=== PATIENT | female | born 1965 | race Caucasian/White ===

== ENCOUNTER 2016-07-09 09:38 | Inpatient (IN) | payer MEDICAID, OTHER ==
[~2016-07-09] VITALS: Ht 162.6 cm; Wt 98.0 kg
[~2016-07-09 09:38] MED LIST: OLAN7.5T2 PO
[2016-07-09 10:58] LABS: BASOPHILS % (AUTO) 0.5 % (0.0-2.0); EOSINOPHILS % (AUTO) 1.4 % (1.0-6.0); HEMATOCRIT 41.1 % (36-46); HEMOGLOBIN 13.4 g/dL (12.0-16.0); LYMPHOCYTES # (AUTO) 3.3 K/uL (1.0-4.8); LYMPHOCYTES % (AUTO) 35.7 % (22.0-44.0); MEAN CORPUSCULAR HEMOGLOBIN 28.6 pg (26.0-34.0); MEAN CORPUSCULAR HGB CONC 32.6 G/dL (31.0-37.0); MEAN CORPUSCULAR VOLUME 88 fL (80-100); MONOCYTES # (AUTO) 0.4 K/uL (0.1-1.0); MONOCYTES % (AUTO) 4.4 % (2.0-9.0); NEUTROPHILS # (AUTO) 5.3 K/uL (1.8-7.7); PLATELET COUNT (AUTO) 314 K/uL (150-450); RED BLOOD CELL COUNT(AUTO) 4.69 MIL/uL (4.00-5.20); RED CELL DISTRIBUTION WIDTH 14.3 % (11.5-14.5); WHITE BLOOD COUNT (AUTO) 9.2 K/uL (4.5-11.0)
[2016-07-09] MEDS ORDERED: HALOPERIDOL 5 MG TABLET PO PRN (11:15)
[2016-07-09 12:19] LABS: ANION GAP 12 mmol/L (8-16); CALCIUM, TOTAL 8.9 mg/dL (8.8-10.5); CARBON DIOXIDE 27 mmol/L (22-29); CHLORIDE 102 mmol/L (98-107); CREATININE 0.84 mg/dL (0.60-1.30); GLOMERULAR FILTR. RATE CALC > 60 mL/min (>60); POTASSIUM 3.2 mmol/L (3.5-5.1); SODIUM SERUM 141 mmol/L (136-145); UREA NITROGEN, BLOOD 15 mg/dL (7-18)
[2016-07-09 12:27] LABS: ALANINE AMINOTRANSFERASE 25 U/L (12-78); ALBUMIN 3.6 g/dL (3.4-5.0); ASPARTATE AMINOTRANSFERASE 19 U/L (15-37); BILIRUBIN,TOTAL 0.4 mg/dL (0.1-1.0); TOTAL PROTEIN, SERUM 7.6 g/dL (6.4-8.2)
[2016-07-09] MEDS ORDERED: POTASSIUM CHLORIDE 20 MEQ ER TABLET PO ONE (15:00)
[2016-07-09 16:08] VITALS: BP 122/86
[2016-07-10 03:14] VITALS: BP 126/76
[2016-07-10] MEDS: LORazepam 2 MG TABLET PO PRN (03:17)
[2016-07-10 08:25] VITALS: BP 108/68
[2016-07-10 08:30] LABS: BASOPHILS # (AUTO) 0.05 K/uL (0.00-0.20); BASOPHILS % (AUTO) 0.6 % (0.0-2.0); EOSINOPHILS # (AUTO) 0.24 K/uL (0.00-0.70); EOSINOPHILS % (AUTO) 2.59 % (1.0-6.0); HEMATOCRIT 35.2 % (36-46); HEMOGLOBIN 11.8 g/dL (12.0-16.0); LYMPHOCYTES # (AUTO) 4.8 K/uL (1.0-4.8); LYMPHOCYTES % (AUTO) 52.1 % (22.0-44.0); MEAN CORPUSCULAR HEMOGLOBIN 29.2 pg (26.0-34.0); MEAN CORPUSCULAR HGB CONC 33.6 G/dL (31.0-37.0); MEAN CORPUSCULAR VOLUME 87 fL (80-100); MONOCYTES # (AUTO) 0.6 K/uL (0.1-1.0); MONOCYTES % (AUTO) 6.5 % (2.0-9.0); NEUTROPHILS # (AUTO) 3.5 K/uL (1.8-7.7); NEUTROPHILS % (AUTO) 38.3 % (40.0-70.0); PLATELET COUNT (AUTO) 292 K/uL (150-450); RED BLOOD CELL COUNT(AUTO) 4.05 MIL/uL (4.00-5.20); RED CELL DISTRIBUTION WIDTH 14.6 % (11.5-14.5); WHITE BLOOD COUNT (AUTO) 9.1 K/uL (4.5-11.0)
[2016-07-10 16:11] VITALS: BP 140/96
[2016-07-10 19:03] VITALS: BP 114/72
[2016-07-10] MEDS: OLANZapine 7.5 MG TABLET PO SCH (21:04)
[2016-07-11 04:50] VITALS: BP 132/82
[2016-07-11] MEDS: LORazepam 2 MG TABLET PO PRN (05:18)
[2016-07-11 09:10] VITALS: BP 129/65
[2016-07-11 16:22] VITALS: BP 133/73
[2016-07-11] MEDS: OLANZapine 7.5 MG TABLET PO SCH (20:17)
[2016-07-11] MEDS: ZOLPIDEM TARTRATE 10 MG TABLET PO PRN (22:11)
[2016-07-12 00:30] VITALS: BP 123/75
[2016-07-12] MEDS: FERROUS SULFATE 325 MG EC TABLET PO SCH ×2 (06:27→16:32)
[2016-07-12 08:56] VITALS: BP 127/70
[2016-07-12 09:33] LABS: HEMATOCRIT 37.7 % (36-46); HEMOGLOBIN 12.3 g/dL (12.0-16.0); MEAN CORPUSCULAR HEMOGLOBIN 28.5 pg (26.0-34.0); MEAN CORPUSCULAR HGB CONC 32.6 G/dL (31.0-37.0); MEAN CORPUSCULAR VOLUME 87 fL (80-100); PLATELET COUNT (AUTO) 326 K/uL (150-450); RED BLOOD CELL COUNT(AUTO) 4.31 MIL/uL (4.00-5.20); RED CELL DISTRIBUTION WIDTH 14.4 % (11.5-14.5); WHITE BLOOD COUNT (AUTO) 8.7 K/uL (4.5-11.0)
[2016-07-12 10:01] LABS: ALANINE AMINOTRANSFERASE 27 U/L (12-78); ALBUMIN 3.4 g/dL (3.4-5.0); ANION GAP 7 mmol/L (8-16); ASPARTATE AMINOTRANSFERASE 19 U/L (15-37); BILIRUBIN,TOTAL 0.2 mg/dL (0.1-1.0); CALCIUM, TOTAL 9.3 mg/dL (8.8-10.5); CARBON DIOXIDE 31 mmol/L (22-29); CHLORIDE 102 mmol/L (98-107); CHOL/HDL RATIO 6.5 (3.9-5.7); CREATININE 0.86 mg/dL (0.60-1.30); GLOMERULAR FILTR. RATE CALC > 60 mL/min (>60); PHOSPHORUS 4.5 mg/dL (2.5-4.9); POTASSIUM 3.6 mmol/L (3.5-5.1); SODIUM SERUM 140 mmol/L (136-145); THYROID STIMULATING HORMONE 2.64 uIU/mL (0.36-3.74); TOTAL PROTEIN, SERUM 7.2 g/dL (6.4-8.2); UREA NITROGEN, BLOOD 19 mg/dL (7-18)
[2016-07-12 11:27] LABS: BAND NEUTROPHILS % (MANUAL) 2 % (1-5); LYMPHOCYTES % (MANUAL) 24 % (22-44); RBC MORPHOLOGY COMMENT NORMAL RBC MORPH; TOTAL CELLS COUNTED 100
[2016-07-12 16:00] VITALS: BP 121/77
[2016-07-12] MEDS ORDERED: BENZOCAINE/MENTHOL LOZENGE MM PRN (19:45)
[2016-07-12] MEDS ORDERED: MAG HYDROX/AL HYDROX/SIMETH ES 30 ML SUSPENSION UDCUP PO PRN (19:45)
[2016-07-12] MEDS ORDERED: LOPERAMIDE HCL 2 MG CAPSULE PO PRN (19:45)
[2016-07-12] MEDS ORDERED: ALBUTEROL SULFATE HFA 90 MCG/PUFF 8 GM INHALER IH PRN (19:45)
[2016-07-12] MEDS ORDERED: PETROLATUM,WHITE 71 GM JELLY TP PRN (19:45)
[2016-07-12] MEDS ORDERED: MAGNESIUM HYDROXIDE SUSPENSION 30 ML UDCUP PO PRN (19:45)
[2016-07-12] MEDS ORDERED: ONDANSETRON HCL 4 MG TABLET PO PRN (19:45)
[2016-07-12] MEDS ORDERED: ACETAMINOPHEN 325 MG TABLET PO PRN (19:45)
[2016-07-12] MEDS ORDERED: BACITRACIN 28.4 GM OINTMENT TP PRN (19:45)
[2016-07-12] MEDS ORDERED: IBUPROFEN 600 MG TABLET PO PRN (19:45)
[2016-07-12] MEDS ORDERED: CloNIDine HCL 0.1 MG TABLET PO PRN (19:45)
[2016-07-12] MEDS: OLANZapine 7.5 MG TABLET PO SCH (20:18)
[2016-07-13] MEDS: FERROUS SULFATE 325 MG EC TABLET PO SCH ×2 (06:30→18:04)
[2016-07-13 06:41] VITALS: BP 110/73
[2016-07-13] MEDS: OMEPRAZOLE 20 MG CAPSULE PO SCH (08:46)
[2016-07-13] MEDS: DOCUSATE SODIUM 100 MG CAPSULE PO SCH (08:46)
[2016-07-13] MEDS: CHOLECALCIFEROL (VIT D3) 1,000 UNITS TABLET PO SCH (08:46)
[2016-07-13 08:55] VITALS: BP 124/81
[2016-07-13 16:00] VITALS: BP 112/64
[2016-07-13] MEDS: OLANZapine 7.5 MG TABLET PO SCH (20:27)
[2016-07-14 05:06] VITALS: BP 129/81
[2016-07-14] MEDS: FERROUS SULFATE 325 MG EC TABLET PO SCH ×2 (06:13→17:15)
[2016-07-14 08:35] VITALS: BP 108/61
[2016-07-14] MEDS: DOCUSATE SODIUM 100 MG CAPSULE PO SCH (08:57)
[2016-07-14] MEDS: CHOLECALCIFEROL (VIT D3) 1,000 UNITS TABLET PO SCH (08:57)
[2016-07-14] MEDS: OMEPRAZOLE 20 MG CAPSULE PO SCH (08:57)
[2016-07-14 16:08] VITALS: BP 115/73
[2016-07-14] MEDS: OLANZapine 7.5 MG TABLET PO SCH (20:13)
[2016-07-15] MEDS: FERROUS SULFATE 325 MG EC TABLET PO SCH ×2 (06:45→16:28)
[2016-07-15 08:23] VITALS: BP 114/68
[2016-07-15] MEDS: DOCUSATE SODIUM 100 MG CAPSULE PO SCH (08:46)
[2016-07-15] MEDS: OMEPRAZOLE 20 MG CAPSULE PO SCH (08:46)
[2016-07-15] MEDS: CHOLECALCIFEROL (VIT D3) 1,000 UNITS TABLET PO SCH (08:46)
[2016-07-15 16:07] VITALS: BP 115/65
[2016-07-15] MEDS: OLANZapine 7.5 MG TABLET PO SCH (20:44)
[2016-07-16 05:04] VITALS: BP 117/63
[2016-07-16] MEDS: FERROUS SULFATE 325 MG EC TABLET PO SCH ×2 (06:36→17:30)
[2016-07-16 08:21] VITALS: BP 106/64
[2016-07-16] MEDS: DOCUSATE SODIUM 100 MG CAPSULE PO SCH (08:45)
[2016-07-16] MEDS: CHOLECALCIFEROL (VIT D3) 1,000 UNITS TABLET PO SCH (08:45)
[2016-07-16] MEDS: OMEPRAZOLE 20 MG CAPSULE PO SCH (08:45)
[2016-07-16 16:30] VITALS: BP 104/56
[2016-07-16] MEDS: OLANZapine 7.5 MG TABLET PO SCH (20:05)
[2016-07-17 00:35] VITALS: BP 126/68
[2016-07-17] MEDS: FERROUS SULFATE 325 MG EC TABLET PO SCH ×2 (06:37→16:55)
[2016-07-17 08:30] VITALS: BP 111/65
[2016-07-17] MEDS: OMEPRAZOLE 20 MG CAPSULE PO SCH (09:28)
[2016-07-17] MEDS: DOCUSATE SODIUM 100 MG CAPSULE PO SCH (09:28)
[2016-07-17] MEDS: CHOLECALCIFEROL (VIT D3) 1,000 UNITS TABLET PO SCH (09:28)
[2016-07-17 16:31] VITALS: BP 133/81
[2016-07-17] MEDS: OLANZapine 7.5 MG TABLET PO SCH (20:20)
[2016-07-18 01:16] VITALS: BP 127/82
[2016-07-18] MEDS: FERROUS SULFATE 325 MG EC TABLET PO SCH ×2 (06:27→17:16)
[2016-07-18 08:27] VITALS: BP 108/63
[2016-07-18] MEDS: CHOLECALCIFEROL (VIT D3) 1,000 UNITS TABLET PO SCH (09:03)
[2016-07-18] MEDS: DOCUSATE SODIUM 100 MG CAPSULE PO SCH (09:03)
[2016-07-18] MEDS: OMEPRAZOLE 20 MG CAPSULE PO SCH (09:03)
[2016-07-18 16:10] VITALS: BP 112/63
[2016-07-18] MEDS: OLANZapine 7.5 MG TABLET PO SCH (20:07)
[2016-07-19 00:34] VITALS: BP 114/72
[2016-07-19] MEDS: FERROUS SULFATE 325 MG EC TABLET PO SCH ×2 (06:08→16:41)
[2016-07-19] MEDS: DOCUSATE SODIUM 100 MG CAPSULE PO SCH (09:17)
[2016-07-19] MEDS: OMEPRAZOLE 20 MG CAPSULE PO SCH (09:17)
[2016-07-19] MEDS: CHOLECALCIFEROL (VIT D3) 1,000 UNITS TABLET PO SCH (09:17)
[2016-07-19 09:22] VITALS: BP 109/60
[2016-07-19 16:19] VITALS: BP 107/74
[2016-07-19] MEDS: ZOLPIDEM TARTRATE 10 MG TABLET PO PRN (20:43)
[2016-07-19] MEDS: OLANZapine 7.5 MG TABLET PO SCH (20:43)
[2016-07-20] MEDS: FERROUS SULFATE 325 MG EC TABLET PO SCH ×2 (06:41→18:06)
[2016-07-20 08:29] VITALS: BP 111/61
[2016-07-20] MEDS: OMEPRAZOLE 20 MG CAPSULE PO SCH (09:00)
[2016-07-20] MEDS: CHOLECALCIFEROL (VIT D3) 1,000 UNITS TABLET PO SCH (09:00)
[2016-07-20] MEDS: DOCUSATE SODIUM 100 MG CAPSULE PO SCH (09:00)
[2016-07-20 16:17] VITALS: BP 114/74
[2016-07-20] MEDS: OLANZapine 7.5 MG TABLET PO SCH (21:05)
[2016-07-21] MEDS: FERROUS SULFATE 325 MG EC TABLET PO SCH ×2 (06:37→16:59)
[2016-07-21 08:53] VITALS: BP 111/50
[2016-07-21] MEDS: CHOLECALCIFEROL (VIT D3) 1,000 UNITS TABLET PO SCH (09:16)
[2016-07-21] MEDS: DOCUSATE SODIUM 100 MG CAPSULE PO SCH (09:16)
[2016-07-21] MEDS: OMEPRAZOLE 20 MG CAPSULE PO SCH (09:16)
[2016-07-21 16:17] VITALS: BP 107/67
[2016-07-21] MEDS: OLANZapine 7.5 MG TABLET PO SCH (20:15)
[2016-07-22 00:08] VITALS: BP 113/71
[2016-07-22] MEDS: FERROUS SULFATE 325 MG EC TABLET PO SCH (06:36)
[2016-07-22 08:25] VITALS: BP 105/64
[2016-07-22] MEDS: CHOLECALCIFEROL (VIT D3) 1,000 UNITS TABLET PO SCH (09:13)
[2016-07-22] MEDS: DOCUSATE SODIUM 100 MG CAPSULE PO SCH (09:13)
[2016-07-22] MEDS: OMEPRAZOLE 20 MG CAPSULE PO SCH (09:13)
[2016-07-22] MEDS ORDERED: OLAN7.5T2 PO (11:09)
[2016-07-22] MEDS ORDERED: FERR-89 PO (11:09)
[2016-07-22] MEDS ORDERED: DSS100 PO (11:10)
[2016-07-22] MEDS ORDERED: OMEP20 PO (11:10)
== END 2016-07-22 14:05 | disposition home or self-care (01) | DRG 750 ==
LOC: EMS 09:40 → B2S 12:28
PROVIDERS: ADMIT Psychiatry & Neurology Psychiatry; ATTEND Psychiatry & Neurology Psychiatry
DX: F25.9 Schizoaffective disorder, unspecified (principal); E55.9 Vitamin D deficiency, unspecified; F22 Delusional disorders; D64.9 Anemia, unspecified; G47.00 Insomnia, unspecified; K59.00 Constipation, unspecified
CPT/HCPCS: 82306; 83735; 84100; 84132; 84443; 85007; 99285; G0480

== ENCOUNTER 2016-12-06 08:02 | Inpatient (IN) | payer MEDICAID, OTHER ==
[~2016-12-06] VITALS: Ht 177.8 cm; Wt 96.9 kg
[2016-12-06 08:55] LABS: BASOPHILS % (AUTO) 0.8 % (0.0-2.0); EOSINOPHILS % (AUTO) 1.3 % (1.0-6.0); HEMOGLOBIN 13.8 g/dL (12.0-16.0); LYMPHOCYTES % (AUTO) 35.6 % (22.0-44.0); MEAN CORPUSCULAR HEMOGLOBIN 29.2 pg (26.0-34.0); MEAN CORPUSCULAR HGB CONC 33.7 G/dL (31.0-37.0); MEAN CORPUSCULAR VOLUME 87 fL (80-100); MONOCYTES # (AUTO) 0.5 K/uL (0.1-1.0); MONOCYTES % (AUTO) 5.8 % (2.0-9.0); NEUTROPHILS # (AUTO) 4.8 K/uL (1.8-7.7); NEUTROPHILS % (AUTO) 56.5 % (40.0-70.0); PLATELET COUNT (AUTO) 300 K/uL (150-450); RED BLOOD CELL COUNT(AUTO) 4.74 MIL/uL (4.00-5.20); RED CELL DISTRIBUTION WIDTH 13.9 % (11.5-14.5); WHITE BLOOD COUNT (AUTO) 8.4 K/uL (4.5-11.0)
[2016-12-06 09:10] LABS: ALANINE AMINOTRANSFERASE 37 U/L (12-78); ALBUMIN 3.6 g/dL (3.4-5.0); ANION GAP 12 mmol/L (8-16); ASPARTATE AMINOTRANSFERASE 26 U/L (15-37); BILIRUBIN,TOTAL 0.7 mg/dL (0.1-1.0); CALCIUM, TOTAL 9.4 mg/dL (8.8-10.5); CARBON DIOXIDE 25 mmol/L (22-29); CHLORIDE 103 mmol/L (98-107); CREATININE 0.77 mg/dL (0.60-1.30); GLOMERULAR FILTR. RATE CALC > 60 mL/min (>60); SODIUM SERUM 140 mmol/L (136-145); TOTAL PROTEIN, SERUM 7.7 g/dL (6.4-8.2); UREA NITROGEN, BLOOD 13 mg/dL (7-18)
[2016-12-06] MEDS ORDERED: LORazepam 2 MG TABLET PO PRN (12:15)
[2016-12-06] MEDS ORDERED: ZOLPIDEM TARTRATE 10 MG TABLET PO PRN (12:15)
[2016-12-06 12:48] LABS: CHOL/HDL RATIO 7.8 (3.9-5.7)
[2016-12-06] MEDS: OLANZapine 5 MG RAPDIS TABLET PO PRN (14:59)
[2016-12-06] MEDS ORDERED: POTASSIUM CHLORIDE 20 MEQ ER TABLET PO ONE ×2 (16:00→21:00)
[2016-12-06 16:11] VITALS: BP 136/81
[2016-12-06] MEDS: OLANZapine 10 MG TABLET PO SCH (20:45)
[2016-12-07] MEDS: DOCUSATE SODIUM 100 MG CAPSULE PO SCH (08:16)
[2016-12-07] MEDS: OMEPRAZOLE 20 MG CAPSULE PO SCH (08:16)
[2016-12-07] MEDS: OLANZapine 5 MG RAPDIS TABLET PO PRN (08:17)
[2016-12-07] MEDS: CHOLECALCIFEROL (VIT D3) 1,000 UNITS TABLET PO SCH (08:17)
[2016-12-07 08:38] VITALS: BP 114/67
[2016-12-07] MEDS ORDERED: POTASSIUM CHLORIDE 20 MEQ ER TABLET PO ONE ×2 (14:30→21:00)
[2016-12-07 17:45] VITALS: BP 133/76
[2016-12-07] MEDS: OLANZapine 10 MG TABLET PO SCH (20:31)
[2016-12-08] MEDS: CHOLECALCIFEROL (VIT D3) 1,000 UNITS TABLET PO SCH (11:01)
[2016-12-08] MEDS: OMEPRAZOLE 20 MG CAPSULE PO SCH (11:01)
[2016-12-08] MEDS: DOCUSATE SODIUM 100 MG CAPSULE PO SCH (11:01)
[2016-12-08 14:18] VITALS: BP 136/72
[2016-12-08] MEDS: OLANZapine 10 MG TABLET PO SCH (20:52)
[2016-12-08 22:55] VITALS: BP 124/81
[2016-12-09 09:41] VITALS: BP 116/71
[2016-12-09] MEDS: DOCUSATE SODIUM 100 MG CAPSULE PO SCH (10:49)
[2016-12-09] MEDS: CHOLECALCIFEROL (VIT D3) 1,000 UNITS TABLET PO SCH (10:49)
[2016-12-09] MEDS: OMEPRAZOLE 20 MG CAPSULE PO SCH (10:49)
[2016-12-09 19:25] VITALS: BP 134/81
[2016-12-09] MEDS: OLANZapine 10 MG TABLET PO SCH (20:56)
[2016-12-10 02:23] VITALS: BP 123/76
[2016-12-10] MEDS: OMEPRAZOLE 20 MG CAPSULE PO SCH (10:42)
[2016-12-10] MEDS: DOCUSATE SODIUM 100 MG CAPSULE PO SCH (10:42)
[2016-12-10] MEDS: CHOLECALCIFEROL (VIT D3) 1,000 UNITS TABLET PO SCH (10:42)
[2016-12-10 15:00] VITALS: BP 120/82
[2016-12-10 17:18] VITALS: BP 137/91
[2016-12-10] MEDS: OLANZapine 10 MG TABLET PO SCH (20:05)
[2016-12-11 09:10] VITALS: BP 125/75
[2016-12-11] MEDS: CHOLECALCIFEROL (VIT D3) 1,000 UNITS TABLET PO SCH (10:36)
[2016-12-11] MEDS: DOCUSATE SODIUM 100 MG CAPSULE PO SCH (10:36)
[2016-12-11] MEDS: OMEPRAZOLE 20 MG CAPSULE PO SCH (10:36)
[2016-12-11 16:58] VITALS: BP 136/60
[2016-12-11] MEDS: OLANZapine 10 MG TABLET PO SCH (20:24)
[2016-12-12 08:05] VITALS: BP 134/99
[2016-12-12] MEDS: OMEPRAZOLE 20 MG CAPSULE PO SCH (11:11)
[2016-12-12] MEDS: DOCUSATE SODIUM 100 MG CAPSULE PO SCH (11:11)
[2016-12-12] MEDS: CHOLECALCIFEROL (VIT D3) 1,000 UNITS TABLET PO SCH (11:11)
[2016-12-12 16:28] VITALS: BP 122/87
[2016-12-12] MEDS: OLANZapine 10 MG TABLET PO SCH (20:58)
[2016-12-13 01:10] VITALS: BP 125/63
[2016-12-13 08:05] VITALS: BP 123/73
[2016-12-13] MEDS: OMEPRAZOLE 20 MG CAPSULE PO SCH (08:33)
[2016-12-13] MEDS: CHOLECALCIFEROL (VIT D3) 1,000 UNITS TABLET PO SCH (08:33)
[2016-12-13] MEDS: DOCUSATE SODIUM 100 MG CAPSULE PO SCH (08:33)
[2016-12-13 19:47] VITALS: BP 137/88
[2016-12-13] MEDS: OLANZapine 10 MG TABLET PO SCH (20:24)
[2016-12-14 08:05] VITALS: BP 108/57
[2016-12-14] MEDS: CHOLECALCIFEROL (VIT D3) 1,000 UNITS TABLET PO SCH (08:42)
[2016-12-14] MEDS: OMEPRAZOLE 20 MG CAPSULE PO SCH (08:42)
[2016-12-14] MEDS: DOCUSATE SODIUM 100 MG CAPSULE PO SCH (08:42)
[2016-12-14 16:52] VITALS: BP 121/65
[2016-12-14] MEDS: OLANZapine 10 MG TABLET PO SCH (20:25)
[2016-12-15] MEDS: CHOLECALCIFEROL (VIT D3) 1,000 UNITS TABLET PO SCH (08:55)
[2016-12-15] MEDS: OMEPRAZOLE 20 MG CAPSULE PO SCH (08:55)
[2016-12-15] MEDS: DOCUSATE SODIUM 100 MG CAPSULE PO SCH (08:55)
[2016-12-15 09:22] VITALS: BP 136/75
[2016-12-15] MEDS: OLANZapine 5 MG TABLET PO SCH (12:46)
[2016-12-15 19:19] VITALS: BP 126/73
[2016-12-15] MEDS: OLANZapine 10 MG TABLET PO SCH (20:49)
[2016-12-16 08:30] VITALS: BP 102/81
[2016-12-16] MEDS: DOCUSATE SODIUM 100 MG CAPSULE PO SCH (09:53)
[2016-12-16] MEDS: OLANZapine 5 MG TABLET PO SCH (09:53)
[2016-12-16] MEDS: OMEPRAZOLE 20 MG CAPSULE PO SCH (09:53)
[2016-12-16] MEDS: CHOLECALCIFEROL (VIT D3) 1,000 UNITS TABLET PO SCH (09:53)
[2016-12-16] MEDS: OLANZapine 10 MG TABLET PO SCH (20:32)
[2016-12-16 20:56] VITALS: BP 125/78
[2016-12-17] MEDS: DOCUSATE SODIUM 100 MG CAPSULE PO SCH (10:41)
[2016-12-17] MEDS: OMEPRAZOLE 20 MG CAPSULE PO SCH (10:41)
[2016-12-17] MEDS: CHOLECALCIFEROL (VIT D3) 1,000 UNITS TABLET PO SCH (10:41)
[2016-12-17] MEDS: OLANZapine 5 MG TABLET PO SCH (10:41)
[2016-12-17 13:14] VITALS: BP 105/72
[2016-12-17 16:30] VITALS: BP 110/87
[2016-12-17] MEDS: OLANZapine 10 MG TABLET PO SCH (20:24)
[2016-12-18 08:30] VITALS: BP 106/57
[2016-12-18] MEDS: DOCUSATE SODIUM 100 MG CAPSULE PO SCH (09:15)
[2016-12-18] MEDS: CHOLECALCIFEROL (VIT D3) 1,000 UNITS TABLET PO SCH (09:16)
[2016-12-18] MEDS: OMEPRAZOLE 20 MG CAPSULE PO SCH (09:16)
[2016-12-18] MEDS: OLANZapine 5 MG TABLET PO SCH (09:23)
[2016-12-18 17:10] VITALS: BP 123/60
[2016-12-18] MEDS: OLANZapine 10 MG TABLET PO SCH (21:03)
[2016-12-19] MEDS: DOCUSATE SODIUM 100 MG CAPSULE PO SCH (08:25)
[2016-12-19] MEDS: OMEPRAZOLE 20 MG CAPSULE PO SCH (08:25)
[2016-12-19] MEDS: OLANZapine 5 MG TABLET PO SCH (08:25)
[2016-12-19] MEDS: CHOLECALCIFEROL (VIT D3) 1,000 UNITS TABLET PO SCH (08:25)
[2016-12-19 09:20] VITALS: BP 114/59
[2016-12-19] MEDS: OLANZapine 10 MG TABLET PO SCH (20:24)
[2016-12-19 22:40] VITALS: BP 121/67
[2016-12-20] MEDS: DOCUSATE SODIUM 100 MG CAPSULE PO SCH ×2 (09:00→10:15)
[2016-12-20 10:05] VITALS: BP 100/58
[2016-12-20] MEDS: OMEPRAZOLE 20 MG CAPSULE PO SCH (10:15)
[2016-12-20] MEDS: CHOLECALCIFEROL (VIT D3) 1,000 UNITS TABLET PO SCH (10:15)
[2016-12-20] MEDS: OLANZapine 5 MG TABLET PO SCH (10:15)
[2016-12-20] MEDS: OLANZapine 10 MG TABLET PO SCH (20:24)
[2016-12-20 20:29] VITALS: BP 116/58
[2016-12-21] MEDS: OLANZapine 5 MG TABLET PO SCH (08:43)
[2016-12-21] MEDS: OMEPRAZOLE 20 MG CAPSULE PO SCH (08:43)
[2016-12-21] MEDS: CHOLECALCIFEROL (VIT D3) 1,000 UNITS TABLET PO SCH (08:43)
[2016-12-21] MEDS: DOCUSATE SODIUM 100 MG CAPSULE PO SCH (08:44)
[2016-12-21 13:39] VITALS: BP 103/62
[2016-12-21 18:53] VITALS: BP 114/66
[2016-12-21] MEDS: OLANZapine 10 MG TABLET PO SCH (20:13)
[2016-12-22 08:30] VITALS: BP 111/67
[2016-12-22] MEDS: OMEPRAZOLE 20 MG CAPSULE PO SCH (09:20)
[2016-12-22] MEDS: OLANZapine 5 MG TABLET PO SCH (09:20)
[2016-12-22] MEDS: CHOLECALCIFEROL (VIT D3) 1,000 UNITS TABLET PO SCH (09:21)
[2016-12-22] MEDS: DOCUSATE SODIUM 100 MG CAPSULE PO SCH (09:21)
[2016-12-22 17:01] VITALS: BP 123/70
[2016-12-22] MEDS: OLANZapine 10 MG TABLET PO SCH (20:18)
[2016-12-22] MEDS: DIVALPROEX SODIUM 500 MG DR TABLET PO SCH (20:19)
[2016-12-23 08:03] VITALS: BP 124/82
[2016-12-23] MEDS: DIVALPROEX SODIUM 500 MG DR TABLET PO SCH ×2 (09:14→20:25)
[2016-12-23] MEDS: CHOLECALCIFEROL (VIT D3) 1,000 UNITS TABLET PO SCH (09:14)
[2016-12-23] MEDS: OLANZapine 10 MG TABLET PO SCH ×2 (09:15→20:26)
[2016-12-23] MEDS: OMEPRAZOLE 20 MG CAPSULE PO SCH (09:15)
[2016-12-23] MEDS: DOCUSATE SODIUM 100 MG CAPSULE PO SCH (09:15)
[2016-12-23 17:18] VITALS: BP 125/72
[2016-12-24 08:00] VITALS: BP 107/69
[2016-12-24] MEDS: DIVALPROEX SODIUM 500 MG DR TABLET PO SCH (08:27)
[2016-12-24] MEDS: DOCUSATE SODIUM 100 MG CAPSULE PO SCH (08:27)
[2016-12-24] MEDS: CHOLECALCIFEROL (VIT D3) 1,000 UNITS TABLET PO SCH (08:28)
[2016-12-24] MEDS: OMEPRAZOLE 20 MG CAPSULE PO SCH (08:28)
[2016-12-24] MEDS: OLANZapine 10 MG TABLET PO SCH (08:28)
[2016-12-24] MEDS ORDERED: VITAD1000 PO (10:54)
[2016-12-24] MEDS ORDERED: OMEP20 PO (10:54)
[2016-12-24] MEDS ORDERED: DIVA500T35 PO (10:54)
[2016-12-24] MEDS ORDERED: DSS100 PO (10:54)
[2016-12-24] MEDS ORDERED: OLAN10TA3 PO ×2 (10:54)
== END 2016-12-24 14:10 | disposition home or self-care (01) | DRG 750 ==
LOC: EEVIPCON 08:05 → EMS 08:05 → AHU 13:36 → 3EI 12-07 16:47
DX: F25.1 Schizoaffective disorder, depressive type (principal); Z59.0 Homelessness; K21.9 Gastro-esophageal reflux disease without esophagitis; K59.00 Constipation, unspecified; Z91.5 Personal history of self-harm
CPT/HCPCS: 82306; 84132; 99285; G0480

== ENCOUNTER 2019-04-03 10:44 | Emergency (ER) | payer MEDICAID, OTHER ==
[~2019-04-03] VITALS: Ht 172.7 cm; Wt 84.1 kg
[~2019-04-03 10:44] MED LIST changes: +CHOL100018 PO; +DIVA-78 PO; +DSS100 PO; +OLAN10TA3 PO; -OLAN7.5T2 PO; +OMEP20 PO
[2019-04-03] MEDS ORDERED: HALOPERIDOL LACTATE 5 MG/ML VIAL IM ONE (12:00)
[2019-04-03] MEDS ORDERED: LORazepam 2 MG/ML VIAL IM ONE (12:00)
[2019-04-03] MEDS ORDERED: DiphenhydrAMINE HCL 50 MG/ML VIAL IM ONE (12:00)
[2019-04-03 12:26] LABS: BASOPHILS % (AUTO) 0.8 % (0.0-2.0); EOSINOPHILS % (AUTO) 1.4 % (1.0-6.0); HEMATOCRIT 23.9 % (36-46); HEMOGLOBIN 7.4 g/dL (12.0-16.0); LYMPHOCYTES # (AUTO) 2.1 K/uL (1.0-4.8); LYMPHOCYTES % (AUTO) 27.2 % (22.0-44.0); MEAN CORPUSCULAR HGB CONC 31.1 G/dL (31.0-37.0); MEAN CORPUSCULAR VOLUME 67 fL (80-100); MONOCYTES # (AUTO) 0.7 K/uL (0.1-1.0); MONOCYTES % (AUTO) 8.7 % (2.0-9.0); NEUTROPHILS # (AUTO) 4.8 K/uL (1.8-7.7); NEUTROPHILS % (AUTO) 61.9 % (40.0-70.0); PLATELET COUNT (AUTO) 646 K/uL (150-450); RED BLOOD CELL COUNT(AUTO) 3.54 MIL/uL (4.00-5.20); RED CELL DISTRIBUTION WIDTH 20.3 % (11.5-14.5)
[2019-04-03 13:02] LABS: ANION GAP 9 mmol/L (8-16); CALCIUM, TOTAL 8.9 mg/dL (8.8-10.5); CARBON DIOXIDE 27 mmol/L (22-29); CHLORIDE 103 mmol/L (98-107); CREATININE 0.84 mg/dL (0.60-1.30); GLOMERULAR FILTR. RATE CALC > 60 mL/min (>60); GLUCOSE,RANDOM 96 mg/dL (70-110); POTASSIUM 3.8 mmol/L (3.5-5.1); SODIUM SERUM 139 mmol/L (136-145); UREA NITROGEN, BLOOD 33 mg/dL (7-18)
[2019-04-03 13:15] LABS: ALANINE AMINOTRANSFERASE 30 U/L (12-78); ALBUMIN 3.5 g/dL (3.4-5.0); ALKALINE PHOSPHATASE 69 U/L (46-116); ASPARTATE AMINOTRANSFERASE 22 U/L (15-37); BILIRUBIN,TOTAL 0.2 mg/dL (0.1-1.0); TOTAL PROTEIN, SERUM 8.2 g/dL (6.4-8.2)
[2019-04-03 16:03] LABS: PLATELET MORPHOLOGY COMMENT LARGE PLTS PRESENT
[2019-04-03 18:21] VITALS: BP 120/62
== END 2019-04-03 19:42 | disposition home or self-care (01) ==
LOC: EMS 10:51
DX: F20.9 Schizophrenia, unspecified (principal); R45.1 Restlessness and agitation; Z79.899 Other long term (current) drug therapy
CPT/HCPCS: 36415; 80053; 85025; 96372; 99285; G0480; J1200; J1630; J2060

== ENCOUNTER 2020-10-11 11:50 | Inpatient (IN) | payer OTHER ==
[~2020-10-11] VITALS: Ht 175.3 cm; Wt 68.2 kg
[~2020-10-11 11:50] MED LIST changes: +DIVA-112 PO; -DIVA-78 PO; -OLAN10TA3 PO; +OLAN10TA74 PO
[2020-10-11] MEDS ORDERED: LORazepam 2 MG/ML VIAL IM ONE (12:30)
[2020-10-11] MEDS ORDERED: HALOPERIDOL LACTATE 5 MG/ML VIAL IM ONE (12:30)
[2020-10-11] MEDS ORDERED: DiphenhydrAMINE HCL 50 MG/ML VIAL IM ONE (12:30)
[2020-10-11] MEDS ORDERED: LORazepam 2 MG TABLET PO PRN (14:00)
[2020-10-11] MEDS ORDERED: ZOLPIDEM TARTRATE 10 MG TABLET PO PRN (14:00)
[2020-10-11 15:09] LABS: COVID AG,FIA SOURCE NASOPHARYNGEAL
[2020-10-11 15:54] LABS: BASOPHILS % (AUTO) 0.5 % (0.0-2.0); EOSINOPHILS % (AUTO) 3.3 % (1.0-6.0); HEMATOCRIT 23.7 % (36-46); LYMPHOCYTES # (AUTO) 1.7 K/uL (1.0-4.8); LYMPHOCYTES % (AUTO) 34.7 % (22.0-44.0); MEAN CORPUSCULAR HEMOGLOBIN 17.2 pg (26.0-34.0); MEAN CORPUSCULAR HGB CONC 28.7 G/dL (31.0-37.0); MEAN CORPUSCULAR VOLUME 60 fL (80-100); MONOCYTES # (AUTO) 0.6 K/uL (0.1-1.0); MONOCYTES % (AUTO) 11.5 % (2.0-9.0); NEUTROPHILS # (AUTO) 2.4 K/uL (1.8-7.7); PLATELET COUNT (AUTO) 458 K/uL (150-450); RED BLOOD CELL COUNT(AUTO) 3.98 MIL/uL (4.00-5.20); RED CELL DISTRIBUTION WIDTH 20.9 % (11.5-14.5)
[2020-10-11 15:59] LABS: ANION GAP 7 mmol/L (8-16); CALCIUM, TOTAL 9.2 mg/dL (8.8-10.5); CARBON DIOXIDE 29 mmol/L (22-29); CHLORIDE 105 mmol/L (98-107); GLOMERULAR FILTR. RATE CALC > 60 mL/min (>60); GLUCOSE,RANDOM 84 mg/dL (70-110); POTASSIUM 3.8 mmol/L (3.5-5.1); SODIUM SERUM 141 mmol/L (136-145); UREA NITROGEN, BLOOD 19 mg/dL (7-18)
[2020-10-11 16:03] LABS: HEMOGLOBIN 6.8 g/dL (12.0-16.0)
[2020-10-11 16:04] LABS: ALANINE AMINOTRANSFERASE 16 U/L (12-78); ALBUMIN 3.5 g/dL (3.4-5.0); ALKALINE PHOSPHATASE 70 U/L (46-116); ASPARTATE AMINOTRANSFERASE 15 U/L (15-37); BILIRUBIN,TOTAL 0.2 mg/dL (0.1-1.0); TOTAL PROTEIN, SERUM 7.9 g/dL (6.4-8.2)
[2020-10-11 16:05] LABS: VALPROIC ACID < 3 mcg/mL (50-100)
[2020-10-11 17:56] LABS: HEMATOCRIT 24.4 % (36-46); HEMOGLOBIN 7.1 g/dL (12.0-16.0)
[2020-10-11 22:45] VITALS: BP 117/43
[2020-10-11] MEDS: OLANZapine 10 MG TABLET PO SCH (23:00)
[2020-10-11] MEDS: DIVALPROEX SODIUM 500 MG DR TABLET PO SCH (23:00)
[2020-10-12] MEDS ORDERED: LORazepam 1 MG TABLET PO PRN (00:18)
[2020-10-12] MEDS: HALOPERIDOL 5 MG TABLET PO PRN (00:49)
[2020-10-12] MEDS ORDERED: HALOPERIDOL LACTATE 5 MG/ML VIAL IM ONE (01:15)
[2020-10-12 04:00] VITALS: BP 98/68
[2020-10-12 06:49] LABS: BASOPHILS % (AUTO) 0.4 % (0.0-2.0); EOSINOPHILS % (AUTO) 2.9 % (1.0-6.0); HEMATOCRIT 24.5 % (36-46); LYMPHOCYTES # (AUTO) 1.4 K/uL (1.0-4.8); MEAN CORPUSCULAR HEMOGLOBIN 17.2 pg (26.0-34.0); MEAN CORPUSCULAR HGB CONC 28.7 G/dL (31.0-37.0); MEAN CORPUSCULAR VOLUME 60 fL (80-100); MONOCYTES # (AUTO) 0.5 K/uL (0.1-1.0); MONOCYTES % (AUTO) 7.1 % (2.0-9.0); NEUTROPHILS # (AUTO) 4.8 K/uL (1.8-7.7); NEUTROPHILS % (AUTO) 69.6 % (40.0-70.0); PLATELET COUNT (AUTO) 535 K/uL (150-450); RED BLOOD CELL COUNT(AUTO) 4.09 MIL/uL (4.00-5.20); RED CELL DISTRIBUTION WIDTH 20.6 % (11.5-14.5)
[2020-10-12 07:38] VITALS: BP 102/68
[2020-10-12] MEDS ORDERED: FERROUS GLUCONATE 324 MG TABLET PO SCH (08:00)
[2020-10-12 08:30] LABS: ANION GAP 6 mmol/L (8-16); CARBON DIOXIDE 26 mmol/L (22-29); CHLORIDE 106 mmol/L (98-107); CHOL/HDL RATIO 3.2 (3.9-5.7); CHOLESTEROL 146 mg/dL (131-200); CREATININE 0.69 mg/dL (0.60-1.30); FREE T4 (FREE THYROXINE) 1.02 ng/dL (0.76-1.46); GLOMERULAR FILTR. RATE CALC > 60 mL/min (>60); GLUCOSE,RANDOM 91 mg/dL (70-110); HDL CHOLESTEROL 45 mg/dL (40-60); LDL CHOL (CALC.) 86 mg/dL (0-130); POTASSIUM 3.8 mmol/L (3.5-5.1); SODIUM SERUM 138 mmol/L (136-145); THYROID STIMULATING HORMONE 2.54 uIU/mL (0.36-3.74); TRIGLYCERIDES 75 mg/dL (15-150); UREA NITROGEN, BLOOD 27 mg/dL (7-18)
[2020-10-12] MEDS: OLANZapine 10 MG TABLET PO SCH ×2 (10:34→22:05)
[2020-10-12] MEDS: VITAMIN B COMP/VIT C/FOLIC ACID CAPSULE PO SCH ×2 (10:34→22:04)
[2020-10-12 11:12] VITALS: BP 110/72
[2020-10-12 11:36] LABS: FERRITIN 1 ng/mL (8-252)
[2020-10-12] MEDS: FERROUS SULFATE 325 MG EC TABLET PO SCH ×2 (12:00→17:30)
[2020-10-12 15:05] VITALS: BP 118/66
[2020-10-12 19:27] VITALS: BP 108/64
[2020-10-12] MEDS: PANTOPRAZOLE SODIUM 40 MG/VIAL IVP SCH (22:05)
[2020-10-12] MEDS: DOCUSATE SODIUM 100 MG CAPSULE PO SCH (22:05)
[2020-10-12] MEDS: DIVALPROEX SODIUM 500 MG DR TABLET PO SCH (22:05)
[2020-10-13] VITALS (15 sets, daily range): BP systolic 96–140; BP diastolic 50–79
[2020-10-13 07:17] LABS: BASOPHILS % (AUTO) 1.2 % (0.0-2.0); EOSINOPHILS % (AUTO) 4.2 % (1.0-6.0); HEMATOCRIT 22.4 % (36-46); LYMPHOCYTES # (AUTO) 1.6 K/uL (1.0-4.8); LYMPHOCYTES % (AUTO) 29.4 % (22.0-44.0); MEAN CORPUSCULAR HEMOGLOBIN 17.5 pg (26.0-34.0); MEAN CORPUSCULAR HGB CONC 29.3 G/dL (31.0-37.0); MEAN CORPUSCULAR VOLUME 60 fL (80-100); MONOCYTES # (AUTO) 0.5 K/uL (0.1-1.0); MONOCYTES % (AUTO) 9.4 % (2.0-9.0); NEUTROPHILS % (AUTO) 55.8 % (40.0-70.0); PLATELET COUNT (AUTO) 452 K/uL (150-450); RED BLOOD CELL COUNT(AUTO) 3.76 MIL/uL (4.00-5.20); RED CELL DISTRIBUTION WIDTH 20.6 % (11.5-14.5)
[2020-10-13 07:43] LABS: HEMOGLOBIN 6.6 g/dL (12.0-16.0)
[2020-10-13 07:56] LABS: ALANINE AMINOTRANSFERASE 18 U/L (12-78); ALBUMIN 3.1 g/dL (3.4-5.0); ALKALINE PHOSPHATASE 65 U/L (46-116); ANION GAP 8 mmol/L (8-16); BILIRUBIN,TOTAL 0.2 mg/dL (0.1-1.0); CALCIUM, TOTAL 9.1 mg/dL (8.8-10.5); CARBON DIOXIDE 28 mmol/L (22-29); CHLORIDE 106 mmol/L (98-107); CREATININE 0.65 mg/dL (0.60-1.30); GLOMERULAR FILTR. RATE CALC > 60 mL/min (>60); GLUCOSE,RANDOM 74 mg/dL (70-110); POTASSIUM 3.9 mmol/L (3.5-5.1); SODIUM SERUM 142 mmol/L (136-145); TOTAL PROTEIN, SERUM 7.3 g/dL (6.4-8.2); UREA NITROGEN, BLOOD 18 mg/dL (7-18)
[2020-10-13 08:10] LABS: ASPARTATE AMINOTRANSFERASE 17 U/L (15-37)
[2020-10-13] MEDS: VITAMIN B COMP/VIT C/FOLIC ACID CAPSULE PO SCH ×2 (08:16→20:56)
[2020-10-13] MEDS: OLANZapine 10 MG TABLET PO SCH ×2 (08:16→20:53)
[2020-10-13] MEDS: DOCUSATE SODIUM 100 MG CAPSULE PO SCH ×2 (08:17→20:53)
[2020-10-13] MEDS: PANTOPRAZOLE SODIUM 40 MG/VIAL IVP SCH ×2 (08:17→20:52)
[2020-10-13] MEDS ORDERED: SODIUM CHLORIDE 0.9% 500 ML IV ONE ×2 (08:31→23:38)
[2020-10-13] MEDS: LORazepam 2 MG TABLET PO PRN (12:20)
[2020-10-13] MEDS: IRON SUCROSE COMPLEX 100 MG in SODIUM CHLORIDE 0.9% 100 ML IV SCH (14:42)
[2020-10-13 14:59] LABS: APPEARANCE,URINE CLEAR (CLEAR); BILIRUBIN,URINE NEGATIVE (NEGATIVE); GLUCOSE, URINE (UA) NEGATIVE (NEGATIVE); KETONES,URINE NEGATIVE (NEGATIVE); LEUKOCYTE ESTERASE ,URINE TRACE (NEGATIVE); NITRATE,URINE NEGATIVE (NEGATIVE); OCCULT BLOOD,URINE NEGATIVE (NEGATIVE); PROTEIN,URINE NEGATIVE (NEGATIVE); UROBILINOGEN,URINE 0.2 mg/dL (<=1.0)
[2020-10-13 15:16] LABS: AMPHET/METH SCREEN,URINE NEGATIVE (NEGATIVE); BARBITURATE SCREEN, URINE NEGATIVE (NEGATIVE); BENZODIAZEPINES SCREEN,URINE NEGATIVE (NEGATIVE); CANNABINOID SCREEN,URINE NEGATIVE (NEGATIVE); COCAINE SCREEN,URINE NEGATIVE (NEGATIVE); METHADONE SCREEN, URINE NEGATIVE (NEGATIVE); OPIATE SCREEN,URINE NEGATIVE (NEGATIVE); PHENCYCLIDINE SCREEN,URINE NEGATIVE (NEGATIVE)
[2020-10-13 15:18] LABS: BACTERIA,URINE Rare /HPF (None Seen); RBC,URINE 0-2 /HPF (0-2); SQUAMOUS EPITHELIAL CELL,UR Few /LPF (None Seen)
[2020-10-13 15:20] LABS: HEMATOCRIT 27.1 % (36-46); HEMOGLOBIN 7.8 g/dL (12.0-16.0)
[2020-10-13] MEDS: DIVALPROEX SODIUM 500 MG DR TABLET PO SCH (20:53)
[2020-10-14 04:30] VITALS: BP 107/78
[2020-10-14 04:50] LABS: BASOPHILS % (AUTO) 0.4 % (0.0-2.0); EOSINOPHILS % (AUTO) 1.5 % (1.0-6.0); HEMATOCRIT 26.6 % (36-46); HEMOGLOBIN 7.9 g/dL (12.0-16.0); LYMPHOCYTES # (AUTO) 1.7 K/uL (1.0-4.8); LYMPHOCYTES % (AUTO) 24.7 % (22.0-44.0); MEAN CORPUSCULAR HEMOGLOBIN 18.2 pg (26.0-34.0); MEAN CORPUSCULAR HGB CONC 29.7 G/dL (31.0-37.0); MEAN CORPUSCULAR VOLUME 61 fL (80-100); MONOCYTES # (AUTO) 0.7 K/uL (0.1-1.0); MONOCYTES % (AUTO) 9.9 % (2.0-9.0); NEUTROPHILS # (AUTO) 4.3 K/uL (1.8-7.7); NEUTROPHILS % (AUTO) 63.5 % (40.0-70.0); PLATELET COUNT (AUTO) 448 K/uL (150-450); RED BLOOD CELL COUNT(AUTO) 4.34 MIL/uL (4.00-5.20); RED CELL DISTRIBUTION WIDTH 21.8 % (11.5-14.5)
[2020-10-14 05:08] LABS: ANION GAP 9 mmol/L (8-16); CARBON DIOXIDE 26 mmol/L (22-29); CHLORIDE 106 mmol/L (98-107); CREATININE 0.62 mg/dL (0.60-1.30); GLOMERULAR FILTR. RATE CALC > 60 mL/min (>60); GLUCOSE,RANDOM 112 mg/dL (70-110); POTASSIUM 3.3 mmol/L (3.5-5.1); SODIUM SERUM 141 mmol/L (136-145); UREA NITROGEN, BLOOD 10 mg/dL (7-18)
[2020-10-14 07:33] VITALS: BP 100/60
[2020-10-14] MEDS ORDERED: POTASSIUM CHLORIDE 20 MEQ ER TABLET PO ONE (07:45)
[2020-10-14] MEDS: VITAMIN B COMP/VIT C/FOLIC ACID CAPSULE PO SCH ×2 (08:07→20:21)
[2020-10-14] MEDS: OLANZapine 10 MG TABLET PO SCH ×2 (08:07→20:21)
[2020-10-14] MEDS: LORazepam 2 MG TABLET PO PRN ×2 (08:09→13:48)
[2020-10-14] MEDS: PANTOPRAZOLE SODIUM 40 MG/VIAL IVP SCH ×2 (08:16→20:22)
[2020-10-14] MEDS: DOCUSATE SODIUM 100 MG CAPSULE PO SCH ×2 (08:17→20:21)
[2020-10-14] MEDS: IRON SUCROSE COMPLEX 100 MG in SODIUM CHLORIDE 0.9% 100 ML IV SCH (13:47)
[2020-10-14 16:31] VITALS: BP 115/65
[2020-10-14] MEDS: DIVALPROEX SODIUM 500 MG DR TABLET PO SCH (20:21)
[2020-10-14 20:35] VITALS: BP 97/56
[2020-10-15 04:17] VITALS: BP 109/60
[2020-10-15 07:20] LABS: ALANINE AMINOTRANSFERASE 24 U/L (12-78); ALKALINE PHOSPHATASE 71 U/L (46-116); ANION GAP 10 mmol/L (8-16); ASPARTATE AMINOTRANSFERASE 17 U/L (15-37); BILIRUBIN,TOTAL 0.2 mg/dL (0.1-1.0); CALCIUM, TOTAL 8.9 mg/dL (8.8-10.5); CARBON DIOXIDE 24 mmol/L (22-29); CHLORIDE 107 mmol/L (98-107); CREATININE 0.71 mg/dL (0.60-1.30); GLOMERULAR FILTR. RATE CALC > 60 mL/min (>60); GLUCOSE,RANDOM 123 mg/dL (70-110); POTASSIUM 3.6 mmol/L (3.5-5.1); SODIUM SERUM 141 mmol/L (136-145); TOTAL PROTEIN, SERUM 7.3 g/dL (6.4-8.2); UREA NITROGEN, BLOOD 10 mg/dL (7-18)
[2020-10-15 07:26] VITALS: BP 105/57
[2020-10-15 07:41] LABS: BASOPHILS % (AUTO) 0.8 % (0.0-2.0); EOSINOPHILS % (AUTO) 6.1 % (1.0-6.0); HEMATOCRIT 26.3 % (36-46); HEMOGLOBIN 7.6 g/dL (12.0-16.0); LYMPHOCYTES % (AUTO) 30.3 % (22.0-44.0); MEAN CORPUSCULAR HEMOGLOBIN 18.1 pg (26.0-34.0); MEAN CORPUSCULAR HGB CONC 28.9 G/dL (31.0-37.0); MEAN CORPUSCULAR VOLUME 62 fL (80-100); MONOCYTES # (AUTO) 0.6 K/uL (0.1-1.0); MONOCYTES % (AUTO) 9.9 % (2.0-9.0); NEUTROPHILS # (AUTO) 3.4 K/uL (1.8-7.7); NEUTROPHILS % (AUTO) 52.9 % (40.0-70.0); PLATELET COUNT (AUTO) 451 K/uL (150-450); RED BLOOD CELL COUNT(AUTO) 4.21 MIL/uL (4.00-5.20); RED CELL DISTRIBUTION WIDTH 22.2 % (11.5-14.5)
[2020-10-15] MEDS: VITAMIN B COMP/VIT C/FOLIC ACID CAPSULE PO SCH ×2 (09:17→20:36)
[2020-10-15] MEDS: DOCUSATE SODIUM 100 MG CAPSULE PO SCH ×2 (09:17→20:36)
[2020-10-15] MEDS: OLANZapine 10 MG TABLET PO SCH ×2 (09:18→20:36)
[2020-10-15] MEDS: PANTOPRAZOLE SODIUM 40 MG/VIAL IVP SCH ×2 (09:20→20:47)
[2020-10-15] MEDS: IRON SUCROSE COMPLEX 100 MG in SODIUM CHLORIDE 0.9% 100 ML IV SCH ×2 (14:00→20:46)
[2020-10-15 15:31] VITALS: BP 113/69
[2020-10-15] MEDS: LORazepam 2 MG TABLET PO PRN ×2 (15:36→23:29)
[2020-10-15 19:22] VITALS: BP 122/60
[2020-10-15] MEDS: DIVALPROEX SODIUM 500 MG DR TABLET PO SCH (20:36)
[2020-10-15 23:04] VITALS: BP 116/71
[2020-10-16 03:45] VITALS: BP 119/75
[2020-10-16] MEDS: LORazepam 2 MG TABLET PO PRN (05:32)
[2020-10-16 07:02] LABS: EOSINOPHILS % (AUTO) 5.5 % (1.0-6.0); LYMPHOCYTES # (AUTO) 2.5 K/uL (1.0-4.8); LYMPHOCYTES % (AUTO) 33.9 % (22.0-44.0); MEAN CORPUSCULAR HEMOGLOBIN 18.5 pg (26.0-34.0); MEAN CORPUSCULAR HGB CONC 29.6 G/dL (31.0-37.0); MEAN CORPUSCULAR VOLUME 62 fL (80-100); MONOCYTES # (AUTO) 0.8 K/uL (0.1-1.0); MONOCYTES % (AUTO) 10.6 % (2.0-9.0); NEUTROPHILS # (AUTO) 3.6 K/uL (1.8-7.7); PLATELET COUNT (AUTO) 480 K/uL (150-450); RED BLOOD CELL COUNT(AUTO) 4.34 MIL/uL (4.00-5.20); RED CELL DISTRIBUTION WIDTH 22.2 % (11.5-14.5)
[2020-10-16 07:11] LABS: ANION GAP 6 mmol/L (8-16); CALCIUM, TOTAL 9.2 mg/dL (8.8-10.5); CARBON DIOXIDE 29 mmol/L (22-29); CHLORIDE 105 mmol/L (98-107); CREATININE 0.71 mg/dL (0.60-1.30); GLOMERULAR FILTR. RATE CALC > 60 mL/min (>60); GLUCOSE,RANDOM 91 mg/dL (70-110); POTASSIUM 3.8 mmol/L (3.5-5.1); SODIUM SERUM 140 mmol/L (136-145); UREA NITROGEN, BLOOD 10 mg/dL (7-18)
[2020-10-16] MEDS: OLANZapine 10 MG TABLET PO SCH ×2 (08:12→20:30)
[2020-10-16] MEDS: DOCUSATE SODIUM 100 MG CAPSULE PO SCH ×2 (08:12→20:31)
[2020-10-16] MEDS: PANTOPRAZOLE SODIUM 40 MG/VIAL IVP SCH ×2 (08:12→20:30)
[2020-10-16] MEDS: VITAMIN B COMP/VIT C/FOLIC ACID CAPSULE PO SCH ×2 (08:12→20:31)
[2020-10-16 08:22] VITALS: BP 126/46
[2020-10-16 15:21] VITALS: BP 136/76
[2020-10-16] MEDS: IRON SUCROSE COMPLEX 100 MG in SODIUM CHLORIDE 0.9% 100 ML IV SCH ×2 (20:00→20:30)
[2020-10-16] MEDS: DIVALPROEX SODIUM 500 MG DR TABLET PO SCH (20:30)
[2020-10-16 20:45] VITALS: BP 101/72
[2020-10-17 00:06] VITALS: BP 123/78
[2020-10-17] MEDS: HALOPERIDOL 5 MG TABLET PO PRN (02:15)
[2020-10-17] MEDS: LORazepam 2 MG TABLET PO PRN (02:15)
[2020-10-17 04:27] VITALS: BP 118/77
[2020-10-17 06:26] LABS: BASOPHILS % (AUTO) 0.7 % (0.0-2.0); EOSINOPHILS % (AUTO) 5.3 % (1.0-6.0); HEMATOCRIT 27.6 % (36-46); HEMOGLOBIN 8.2 g/dL (12.0-16.0); LYMPHOCYTES # (AUTO) 2.2 K/uL (1.0-4.8); LYMPHOCYTES % (AUTO) 31.6 % (22.0-44.0); MEAN CORPUSCULAR HEMOGLOBIN 18.7 pg (26.0-34.0); MEAN CORPUSCULAR HGB CONC 29.5 G/dL (31.0-37.0); MEAN CORPUSCULAR VOLUME 63 fL (80-100); MONOCYTES # (AUTO) 0.7 K/uL (0.1-1.0); MONOCYTES % (AUTO) 10.5 % (2.0-9.0); NEUTROPHILS # (AUTO) 3.7 K/uL (1.8-7.7); NEUTROPHILS % (AUTO) 51.9 % (40.0-70.0); PLATELET COUNT (AUTO) 467 K/uL (150-450); RED BLOOD CELL COUNT(AUTO) 4.37 MIL/uL (4.00-5.20); RED CELL DISTRIBUTION WIDTH 22.2 % (11.5-14.5)
[2020-10-17 06:43] LABS: ALANINE AMINOTRANSFERASE 27 U/L (12-78); ALBUMIN 3.3 g/dL (3.4-5.0); ALKALINE PHOSPHATASE 77 U/L (46-116); ANION GAP 7 mmol/L (8-16); ASPARTATE AMINOTRANSFERASE 15 U/L (15-37); BILIRUBIN,TOTAL 0.1 mg/dL (0.1-1.0); CALCIUM, TOTAL 9.5 mg/dL (8.8-10.5); CARBON DIOXIDE 30 mmol/L (22-29); CHLORIDE 103 mmol/L (98-107); CREATININE 0.69 mg/dL (0.60-1.30); GLOMERULAR FILTR. RATE CALC > 60 mL/min (>60); GLUCOSE,RANDOM 94 mg/dL (70-110); POTASSIUM 3.9 mmol/L (3.5-5.1); SODIUM SERUM 140 mmol/L (136-145); TOTAL PROTEIN, SERUM 7.8 g/dL (6.4-8.2); UREA NITROGEN, BLOOD 10 mg/dL (7-18)
[2020-10-17 08:27] VITALS: BP 98/52
[2020-10-17] MEDS: PANTOPRAZOLE SODIUM 40 MG/VIAL IVP SCH (09:00)
[2020-10-17] MEDS: VITAMIN B COMP/VIT C/FOLIC ACID CAPSULE PO SCH (09:56)
[2020-10-17] MEDS: OLANZapine 10 MG TABLET PO SCH (09:56)
[2020-10-17] MEDS: DOCUSATE SODIUM 100 MG CAPSULE PO SCH (09:56)
[2020-10-17 11:28] VITALS: BP 114/76
[2020-10-17 15:23] VITALS: BP 116/74
[2020-10-17 16:50] LABS: COVID AG,FIA SOURCE NASAL SWAB
== END 2020-10-17 18:13 | DRG 663 ==
LOC: EMS 11:57 → 4E 22:15 → 6N 10-12 18:13
PROVIDERS: ADMIT Internal Medicine; ATTEND Internal Medicine
PROC: 30233N1 Transfusion of Nonautologous Red Blood Cells into Peripheral Vein, Percutaneous Approach (ICD-10-PCS; principal; 2020-10-13)
DX: D50.9 Iron deficiency anemia, unspecified (principal); F25.1 Schizoaffective disorder, depressive type; Z20.822 Contact with and (suspected) exposure to COVID-19; E63.9 Nutritional deficiency, unspecified; F31.9 Bipolar disorder, unspecified; K21.9 Gastro-esophageal reflux disease without esophagitis; Z79.899 Other long term (current) drug therapy
CPT/HCPCS: 80048; 80053; 80061; 80164; 81001; 82271; 82728; 83540; 83550; 83615; 83735; 84439; 84443; 85014; 85018; 85025; 85610; 85730; 86850; 86900; 86901; 86923; 99285; C9113; G0378; G0480; J1200; J1630; J1756; J2060; J7040; J7050; P9016

== ENCOUNTER 2020-10-17 12:14 | Inpatient (IN) | payer MEDICAID ==
[~2020-10-17] VITALS: Ht 167.6 cm; Wt 82.1 kg
[2020-10-17 18:30] VITALS: BP 104/60
[2020-10-17] MEDS: DIVALPROEX SODIUM 500 MG DR TABLET PO SCH (20:33)
[2020-10-17] MEDS: OLANZapine 10 MG TABLET PO SCH (20:34)
[2020-10-18 04:27] VITALS: BP 98/54
[2020-10-18 06:51] LABS: EOSINOPHILS % (AUTO) 5.4 % (1.0-6.0); HEMATOCRIT 25.9 % (36-46); HEMOGLOBIN 7.7 g/dL (12.0-16.0); LYMPHOCYTES # (AUTO) 1.7 K/uL (1.0-4.8); LYMPHOCYTES % (AUTO) 26.7 % (22.0-44.0); MEAN CORPUSCULAR HEMOGLOBIN 18.8 pg (26.0-34.0); MEAN CORPUSCULAR HGB CONC 29.7 G/dL (31.0-37.0); MEAN CORPUSCULAR VOLUME 63 fL (80-100); MONOCYTES # (AUTO) 0.6 K/uL (0.1-1.0); MONOCYTES % (AUTO) 9.1 % (2.0-9.0); NEUTROPHILS # (AUTO) 3.6 K/uL (1.8-7.7); NEUTROPHILS % (AUTO) 57.8 % (40.0-70.0); PLATELET COUNT (AUTO) 423 K/uL (150-450); RED BLOOD CELL COUNT(AUTO) 4.08 MIL/uL (4.00-5.20); RED CELL DISTRIBUTION WIDTH 22.8 % (11.5-14.5)
[2020-10-18] MEDS: FERROUS SULFATE 325 MG EC TABLET PO SCH ×3 (06:59→16:24)
[2020-10-18 07:22] LABS: ALANINE AMINOTRANSFERASE 30 U/L (12-78); ALKALINE PHOSPHATASE 74 U/L (46-116); ANION GAP 9 mmol/L (8-16); ASPARTATE AMINOTRANSFERASE 16 U/L (15-37); BILIRUBIN,TOTAL 0.1 mg/dL (0.1-1.0); CARBON DIOXIDE 29 mmol/L (22-29); CHLORIDE 104 mmol/L (98-107); CHOL/HDL RATIO 3.9 (3.9-5.7); CHOLESTEROL 133 mg/dL (131-200); CREATININE 0.68 mg/dL (0.60-1.30); GLOMERULAR FILTR. RATE CALC > 60 mL/min (>60); GLUCOSE,RANDOM 86 mg/dL (70-110); HDL CHOLESTEROL 34 mg/dL (40-60); LDL CHOL (CALC.) 82 mg/dL (0-130); POTASSIUM 4.2 mmol/L (3.5-5.1); SODIUM SERUM 142 mmol/L (136-145); TOTAL PROTEIN, SERUM 7.3 g/dL (6.4-8.2); TRIGLYCERIDES 85 mg/dL (15-150); UREA NITROGEN, BLOOD 18 mg/dL (7-18); VALPROIC ACID 36 mcg/mL (50-100)
[2020-10-18] MEDS: OLANZapine 10 MG TABLET PO SCH ×3 (08:16→20:58)
[2020-10-18] MEDS: VITAMIN B COMP/VIT C/FOLIC ACID CAPSULE PO SCH ×3 (08:16→16:24)
[2020-10-18 10:31] VITALS: BP 98/56
[2020-10-18 16:08] VITALS: BP 100/60
[2020-10-18] MEDS: HALOPERIDOL 5 MG TABLET PO PRN (20:59)
[2020-10-18] MEDS: DIVALPROEX SODIUM 500 MG DR TABLET PO SCH (20:59)
[2020-10-19 04:32] VITALS: BP 104/64
[2020-10-19] MEDS: FERROUS SULFATE 325 MG EC TABLET PO SCH ×3 (07:07→17:06)
[2020-10-19 08:00] VITALS: BP 106/59
[2020-10-19] MEDS: VITAMIN B COMP/VIT C/FOLIC ACID CAPSULE PO SCH ×2 (08:40→17:06)
[2020-10-19] MEDS: OLANZapine 10 MG TABLET PO SCH ×2 (08:40→20:53)
[2020-10-19] MEDS: ASCORBIC ACID 500 MG TABLET PO SCH ×3 (08:41→17:06)
[2020-10-19 16:00] VITALS: BP 134/84
[2020-10-19] MEDS ORDERED: PERMETHRIN 1% 60 ML LOTION TP ONE (17:45)
[2020-10-19] MEDS: DIVALPROEX SODIUM 500 MG DR TABLET PO SCH (20:54)
[2020-10-19] MEDS: HALOPERIDOL 5 MG TABLET PO PRN (21:34)
[2020-10-20] MEDS: FERROUS SULFATE 325 MG EC TABLET PO SCH ×4 (06:50→17:30)
[2020-10-20] MEDS: OLANZapine 10 MG TABLET PO SCH ×3 (09:00→20:09)
[2020-10-20] MEDS: ASCORBIC ACID 500 MG TABLET PO SCH ×4 (09:31→17:00)
[2020-10-20] MEDS: VITAMIN B COMP/VIT C/FOLIC ACID CAPSULE PO SCH ×3 (09:31→17:00)
[2020-10-20 16:51] VITALS: BP 116/69
[2020-10-20] MEDS: DIVALPROEX SODIUM 500 MG DR TABLET PO SCH (20:09)
[2020-10-21] MEDS: FERROUS SULFATE 325 MG EC TABLET PO SCH ×3 (07:00→17:30)
[2020-10-21 08:23] VITALS: BP 119/76
[2020-10-21] MEDS: ASCORBIC ACID 500 MG TABLET PO SCH ×3 (09:00→17:00)
[2020-10-21] MEDS: OLANZapine 10 MG TABLET PO SCH ×2 (09:00→20:51)
[2020-10-21] MEDS: VITAMIN B COMP/VIT C/FOLIC ACID CAPSULE PO SCH ×2 (09:00→17:00)
[2020-10-21 16:00] VITALS: BP 113/54
[2020-10-21] MEDS: DIVALPROEX SODIUM 500 MG DR TABLET PO SCH (20:51)
[2020-10-22] MEDS: FERROUS SULFATE 325 MG EC TABLET PO SCH ×3 (06:38→17:30)
[2020-10-22 07:40] VITALS: BP 126/88
[2020-10-22] MEDS: ASCORBIC ACID 500 MG TABLET PO SCH ×3 (09:00→17:00)
[2020-10-22] MEDS: VITAMIN B COMP/VIT C/FOLIC ACID CAPSULE PO SCH ×2 (09:00→17:00)
[2020-10-22] MEDS: OLANZapine 10 MG TABLET PO SCH ×2 (09:00→21:00)
[2020-10-22 11:26] VITALS: BP 109/65
[2020-10-22 16:11] VITALS: BP 133/83
[2020-10-22] MEDS: DIVALPROEX SODIUM 500 MG DR TABLET PO SCH (21:00)
[2020-10-23 04:47] VITALS: BP 103/72
[2020-10-23] MEDS: FERROUS SULFATE 325 MG EC TABLET PO SCH ×3 (06:50→17:30)
[2020-10-23] MEDS: VITAMIN B COMP/VIT C/FOLIC ACID CAPSULE PO SCH ×2 (09:00→17:00)
[2020-10-23] MEDS: ASCORBIC ACID 500 MG TABLET PO SCH ×3 (09:00→17:00)
[2020-10-23] MEDS: OLANZapine 10 MG TABLET PO SCH ×2 (09:00→21:00)
[2020-10-23 16:25] VITALS: BP 115/56
[2020-10-23] MEDS: DIVALPROEX SODIUM 500 MG DR TABLET PO SCH (21:00)
[2020-10-24] MEDS: FERROUS SULFATE 325 MG EC TABLET PO SCH ×3 (07:17→16:45)
[2020-10-24] MEDS: OLANZapine 10 MG TABLET PO SCH ×2 (09:00→21:00)
[2020-10-24] MEDS: ASCORBIC ACID 500 MG TABLET PO SCH ×3 (09:00→16:45)
[2020-10-24] MEDS: VITAMIN B COMP/VIT C/FOLIC ACID CAPSULE PO SCH ×2 (09:00→16:45)
[2020-10-24 15:51] LABS: COVID AG,FIA SOURCE NASOPHARYNGEAL
[2020-10-24 18:19] VITALS: BP 101/72
[2020-10-24] MEDS: DIVALPROEX SODIUM 500 MG DR TABLET PO SCH (21:00)
[2020-10-25 02:50] VITALS: BP 122/60
[2020-10-25] MEDS: FERROUS SULFATE 325 MG EC TABLET PO SCH ×3 (06:45→17:36)
[2020-10-25] MEDS: VITAMIN B COMP/VIT C/FOLIC ACID CAPSULE PO SCH ×2 (09:00→17:36)
[2020-10-25] MEDS: ASCORBIC ACID 500 MG TABLET PO SCH ×3 (09:00→17:36)
[2020-10-25] MEDS: OLANZapine 10 MG TABLET PO SCH ×2 (09:00→20:34)
[2020-10-25] MEDS ORDERED: DiphenhydrAMINE HCL 50 MG/ML VIAL ONE (14:22)
[2020-10-25] MEDS ORDERED: LORazepam 2 MG/ML VIAL ONE (14:22)
[2020-10-25] MEDS ORDERED: HALOPERIDOL LACTATE 5 MG/ML VIAL ONE (14:22)
[2020-10-25] MEDS ORDERED: LORazepam 2 MG/ML VIAL IM ONE (14:30)
[2020-10-25] MEDS ORDERED: HALOPERIDOL LACTATE 5 MG/ML VIAL IM ONE (14:30)
[2020-10-25] MEDS ORDERED: DiphenhydrAMINE HCL 50 MG/ML VIAL IM ONE (14:30)
[2020-10-25 16:00] VITALS: BP 105/67
[2020-10-25] MEDS: DIVALPROEX SODIUM 500 MG DR TABLET PO SCH (20:34)
[2020-10-26 03:48] VITALS: BP 105/62
[2020-10-26] MEDS: FERROUS SULFATE 325 MG EC TABLET PO SCH ×3 (07:02→16:18)
[2020-10-26 09:01] VITALS: BP 99/60
[2020-10-26] MEDS: OLANZapine 10 MG TABLET PO SCH ×2 (10:11→20:40)
[2020-10-26] MEDS: ASCORBIC ACID 500 MG TABLET PO SCH ×3 (10:12→16:18)
[2020-10-26] MEDS: VITAMIN B COMP/VIT C/FOLIC ACID CAPSULE PO SCH ×2 (10:12→16:18)
[2020-10-26 16:08] VITALS: BP 104/70
[2020-10-26] MEDS: DIVALPROEX SODIUM 500 MG DR TABLET PO SCH (20:39)
[2020-10-27 04:45] VITALS: BP 95/65
[2020-10-27] MEDS: FERROUS SULFATE 325 MG EC TABLET PO SCH ×3 (06:50→19:44)
[2020-10-27 09:00] VITALS: BP 97/58
[2020-10-27] MEDS: VITAMIN B COMP/VIT C/FOLIC ACID CAPSULE PO SCH ×2 (09:00→17:19)
[2020-10-27] MEDS: OLANZapine 10 MG TABLET PO SCH ×2 (09:00→21:22)
[2020-10-27] MEDS: ASCORBIC ACID 500 MG TABLET PO SCH ×3 (09:00→17:19)
[2020-10-27 16:45] VITALS: BP 101/74
[2020-10-27] MEDS: DIVALPROEX SODIUM 500 MG DR TABLET PO SCH (21:21)
[2020-10-28] MEDS: FERROUS SULFATE 325 MG EC TABLET PO SCH ×3 (06:29→17:45)
[2020-10-28 08:57] VITALS: BP 104/60
[2020-10-28] MEDS: VITAMIN B COMP/VIT C/FOLIC ACID CAPSULE PO SCH ×2 (09:00→17:06)
[2020-10-28] MEDS: OLANZapine 10 MG TABLET PO SCH ×2 (09:00→21:31)
[2020-10-28] MEDS: ASCORBIC ACID 500 MG TABLET PO SCH ×3 (09:00→17:06)
[2020-10-28 16:17] VITALS: BP 101/64
[2020-10-28] MEDS: HALOPERIDOL 5 MG TABLET PO PRN (17:06)
[2020-10-28] MEDS: DIVALPROEX SODIUM 500 MG DR TABLET PO SCH (21:31)
[2020-10-29 01:01] VITALS: BP 108/64
[2020-10-29] MEDS: FERROUS SULFATE 325 MG EC TABLET PO SCH ×3 (06:43→17:30)
[2020-10-29 09:24] VITALS: BP 91/58
[2020-10-29] MEDS: OLANZapine 10 MG TABLET PO SCH ×2 (10:11→21:17)
[2020-10-29] MEDS: ASCORBIC ACID 500 MG TABLET PO SCH ×3 (10:12→17:00)
[2020-10-29] MEDS: VITAMIN B COMP/VIT C/FOLIC ACID CAPSULE PO SCH ×3 (10:12→17:00)
[2020-10-29 16:00] VITALS: BP 101/71
[2020-10-29] MEDS: DIVALPROEX SODIUM 500 MG DR TABLET PO SCH (21:17)
[2020-10-30] MEDS: FERROUS SULFATE 325 MG EC TABLET PO SCH ×3 (06:46→16:19)
[2020-10-30] MEDS: OLANZapine 10 MG TABLET PO SCH ×2 (09:08→20:57)
[2020-10-30] MEDS: VITAMIN B COMP/VIT C/FOLIC ACID CAPSULE PO SCH ×2 (09:08→16:19)
[2020-10-30] MEDS: ASCORBIC ACID 500 MG TABLET PO SCH ×3 (09:08→16:19)
[2020-10-30 10:17] VITALS: BP 117/75
[2020-10-30 15:27] LABS: COVID AG,FIA SOURCE NASOPHARYNGEAL
[2020-10-30] MEDS: DIVALPROEX SODIUM 500 MG DR TABLET PO SCH (20:56)
[2020-10-31] MEDS: FERROUS SULFATE 325 MG EC TABLET PO SCH ×3 (06:45→16:14)
[2020-10-31] MEDS: OLANZapine 10 MG TABLET PO SCH ×2 (07:57→20:26)
[2020-10-31] MEDS: VITAMIN B COMP/VIT C/FOLIC ACID CAPSULE PO SCH ×2 (07:57→16:14)
[2020-10-31] MEDS: ASCORBIC ACID 500 MG TABLET PO SCH ×3 (07:57→16:14)
[2020-10-31 08:59] VITALS: BP 105/61
[2020-10-31 16:39] VITALS: BP 100/60
[2020-10-31 20:00] VITALS: BP 127/67
[2020-10-31] MEDS: DIVALPROEX SODIUM 500 MG DR TABLET PO SCH (20:26)
[2020-11-01] MEDS: FERROUS SULFATE 325 MG EC TABLET PO SCH ×3 (06:41→16:43)
[2020-11-01] MEDS: VITAMIN B COMP/VIT C/FOLIC ACID CAPSULE PO SCH ×2 (08:31→16:43)
[2020-11-01] MEDS: ASCORBIC ACID 500 MG TABLET PO SCH ×3 (08:31→16:43)
[2020-11-01] MEDS: OLANZapine 10 MG TABLET PO SCH ×2 (08:31→21:03)
[2020-11-01 08:49] VITALS: BP 98/63
[2020-11-01] MEDS: HALOPERIDOL 5 MG TABLET PO PRN ×2 (16:43→21:03)
[2020-11-01] MEDS: DIVALPROEX SODIUM 500 MG DR TABLET PO SCH (21:02)
[2020-11-02] MEDS: FERROUS SULFATE 325 MG EC TABLET PO SCH ×3 (06:51→16:42)
[2020-11-02 08:20] VITALS: BP 104/51
[2020-11-02] MEDS: ASCORBIC ACID 500 MG TABLET PO SCH ×3 (10:06→16:42)
[2020-11-02] MEDS: VITAMIN B COMP/VIT C/FOLIC ACID CAPSULE PO SCH ×2 (10:06→16:42)
[2020-11-02] MEDS: OLANZapine 10 MG TABLET PO SCH ×2 (10:06→20:50)
[2020-11-02 16:32] VITALS: BP 96/60
[2020-11-02] MEDS: DIVALPROEX SODIUM 500 MG DR TABLET PO SCH (20:50)
[2020-11-03] MEDS: FERROUS SULFATE 325 MG EC TABLET PO SCH ×3 (07:13→16:35)
[2020-11-03 08:00] VITALS: BP 95/60
[2020-11-03] MEDS: OLANZapine 10 MG TABLET PO SCH ×2 (09:23→20:15)
[2020-11-03] MEDS: VITAMIN B COMP/VIT C/FOLIC ACID CAPSULE PO SCH ×2 (09:24→16:35)
[2020-11-03] MEDS: ASCORBIC ACID 500 MG TABLET PO SCH ×3 (09:24→16:35)
[2020-11-03 16:49] VITALS: BP 106/64
[2020-11-03] MEDS: DIVALPROEX SODIUM 500 MG DR TABLET PO SCH (20:15)
[2020-11-04 04:21] VITALS: BP 124/60
[2020-11-04] MEDS: FERROUS SULFATE 325 MG EC TABLET PO SCH ×3 (06:52→16:15)
[2020-11-04 09:23] VITALS: BP 143/92
[2020-11-04] MEDS: ASCORBIC ACID 500 MG TABLET PO SCH ×3 (09:38→16:15)
[2020-11-04] MEDS: OLANZapine 10 MG TABLET PO SCH ×2 (09:38→20:26)
[2020-11-04] MEDS: VITAMIN B COMP/VIT C/FOLIC ACID CAPSULE PO SCH ×2 (09:38→16:15)
[2020-11-04 16:00] VITALS: BP 106/59
[2020-11-04] MEDS: DIVALPROEX SODIUM 500 MG DR TABLET PO SCH (20:26)
[2020-11-05 01:15] VITALS: BP 115/55
[2020-11-05] MEDS: FERROUS SULFATE 325 MG EC TABLET PO SCH ×3 (06:37→16:37)
[2020-11-05] MEDS: ASCORBIC ACID 500 MG TABLET PO SCH ×3 (09:00→16:37)
[2020-11-05] MEDS: VITAMIN B COMP/VIT C/FOLIC ACID CAPSULE PO SCH ×2 (09:00→16:37)
[2020-11-05] MEDS: OLANZapine 10 MG TABLET PO SCH ×2 (09:00→20:12)
[2020-11-05 16:00] VITALS: BP 123/72
[2020-11-05] MEDS: DIVALPROEX SODIUM 500 MG DR TABLET PO SCH (20:12)
[2020-11-06 00:21] VITALS: BP 106/60
[2020-11-06] MEDS: FERROUS SULFATE 325 MG EC TABLET PO SCH ×3 (07:00→17:23)
[2020-11-06] MEDS: ASCORBIC ACID 500 MG TABLET PO SCH ×3 (08:49→17:23)
[2020-11-06] MEDS: VITAMIN B COMP/VIT C/FOLIC ACID CAPSULE PO SCH ×2 (08:49→17:23)
[2020-11-06] MEDS: OLANZapine 10 MG TABLET PO SCH ×2 (08:49→21:19)
[2020-11-06 16:00] VITALS: BP 100/53
[2020-11-06] MEDS: HALOPERIDOL 5 MG TABLET PO PRN (17:23)
[2020-11-06] MEDS: DIVALPROEX SODIUM 500 MG DR TABLET PO SCH (21:18)
[2020-11-06] MEDS: LORazepam 2 MG TABLET PO PRN (21:19)
[2020-11-06 22:41] LABS: COVID AG,FIA SOURCE NASOPHARYNGEAL
[2020-11-07 04:57] VITALS: BP 145/80
[2020-11-07] MEDS: FERROUS SULFATE 325 MG EC TABLET PO SCH ×3 (06:58→17:29)
[2020-11-07] MEDS: ASCORBIC ACID 500 MG TABLET PO SCH ×3 (08:41→17:29)
[2020-11-07] MEDS: OLANZapine 10 MG TABLET PO SCH ×2 (08:41→21:24)
[2020-11-07] MEDS: VITAMIN B COMP/VIT C/FOLIC ACID CAPSULE PO SCH ×2 (08:41→17:29)
[2020-11-07] MEDS ORDERED: TUBERCULIN, PURIFIED PROTEIN DERIVATIVE 5 TU/0.1 ML SYRINGE ID ONE (09:45)
[2020-11-07 16:20] VITALS: BP 124/76
[2020-11-07] MEDS: HALOPERIDOL 5 MG TABLET PO PRN (17:29)
[2020-11-07] MEDS: DIVALPROEX SODIUM 500 MG DR TABLET PO SCH (21:24)
[2020-11-07] MEDS: LORazepam 2 MG TABLET PO PRN (21:24)
[2020-11-08 02:17] VITALS: BP 105/65
[2020-11-08 08:38] VITALS: BP 101/68
[2020-11-08] MEDS: OLANZapine 10 MG TABLET PO SCH ×2 (08:39→21:16)
[2020-11-08] MEDS: VITAMIN B COMP/VIT C/FOLIC ACID CAPSULE PO SCH ×2 (08:40→17:48)
[2020-11-08] MEDS: FERROUS SULFATE 325 MG EC TABLET PO SCH ×3 (08:40→17:48)
[2020-11-08] MEDS: ASCORBIC ACID 500 MG TABLET PO SCH ×3 (08:40→17:48)
[2020-11-08 16:14] VITALS: BP 101/59
[2020-11-08] MEDS: HALOPERIDOL 5 MG TABLET PO PRN (17:48)
[2020-11-08] MEDS: DIVALPROEX SODIUM 500 MG DR TABLET PO SCH (21:16)
[2020-11-08] MEDS: LORazepam 2 MG TABLET PO PRN (21:17)
[2020-11-09 05:52] VITALS: BP 105/70
[2020-11-09] MEDS: FERROUS SULFATE 325 MG EC TABLET PO SCH ×3 (06:37→16:48)
[2020-11-09] MEDS: OLANZapine 10 MG TABLET PO SCH ×2 (08:28→21:02)
[2020-11-09] MEDS: ASCORBIC ACID 500 MG TABLET PO SCH ×3 (08:28→16:48)
[2020-11-09] MEDS: VITAMIN B COMP/VIT C/FOLIC ACID CAPSULE PO SCH ×2 (08:28→16:48)
[2020-11-09 08:54] VITALS: BP 104/53
[2020-11-09 16:27] VITALS: BP 108/72
[2020-11-09] MEDS: HALOPERIDOL 5 MG TABLET PO PRN (16:48)
[2020-11-09] MEDS: DIVALPROEX SODIUM 500 MG DR TABLET PO SCH (21:02)
[2020-11-09] MEDS: LORazepam 2 MG TABLET PO PRN (21:03)
[2020-11-10] MEDS: FERROUS SULFATE 325 MG EC TABLET PO SCH ×3 (07:00→16:21)
[2020-11-10] MEDS: VITAMIN B COMP/VIT C/FOLIC ACID CAPSULE PO SCH ×2 (09:00→16:20)
[2020-11-10] MEDS: ASCORBIC ACID 500 MG TABLET PO SCH ×3 (09:20→16:20)
[2020-11-10] MEDS: OLANZapine 10 MG TABLET PO SCH ×2 (09:20→20:09)
[2020-11-10 10:30] VITALS: BP 94/60
[2020-11-10 16:08] VITALS: BP 112/62
[2020-11-10] MEDS: DIVALPROEX SODIUM 500 MG DR TABLET PO SCH (20:09)
[2020-11-11 03:14] VITALS: BP 105/62
[2020-11-11] MEDS: FERROUS SULFATE 325 MG EC TABLET PO SCH ×3 (06:56→17:30)
[2020-11-11] MEDS: VITAMIN B COMP/VIT C/FOLIC ACID CAPSULE PO SCH ×2 (08:26→17:00)
[2020-11-11] MEDS: ASCORBIC ACID 500 MG TABLET PO SCH ×3 (08:26→17:00)
[2020-11-11] MEDS: OLANZapine 10 MG TABLET PO SCH ×2 (08:27→21:07)
[2020-11-11 09:51] VITALS: BP 96/56
[2020-11-11 16:16] VITALS: BP 115/70
[2020-11-11] MEDS: DIVALPROEX SODIUM 500 MG DR TABLET PO SCH (21:07)
[2020-11-12] MEDS: FERROUS SULFATE 325 MG EC TABLET PO SCH ×3 (06:37→16:20)
[2020-11-12 08:27] VITALS: BP 116/66
[2020-11-12] MEDS: VITAMIN B COMP/VIT C/FOLIC ACID CAPSULE PO SCH ×2 (09:03→16:20)
[2020-11-12] MEDS: OLANZapine 10 MG TABLET PO SCH ×2 (09:03→20:21)
[2020-11-12] MEDS: ASCORBIC ACID 500 MG TABLET PO SCH ×3 (09:04→16:20)
[2020-11-12] MEDS: DIVALPROEX SODIUM 250 MG DR TABLET PO SCH (16:20)
[2020-11-12 16:48] VITALS: BP 102/74
[2020-11-13 03:43] VITALS: BP 109/60
[2020-11-13] MEDS: FERROUS SULFATE 325 MG EC TABLET PO SCH ×3 (06:48→16:04)
[2020-11-13] MEDS: DIVALPROEX SODIUM 250 MG DR TABLET PO SCH ×2 (08:35→16:04)
[2020-11-13] MEDS: ASCORBIC ACID 500 MG TABLET PO SCH ×3 (08:36→16:04)
[2020-11-13] MEDS: OLANZapine 10 MG TABLET PO SCH ×2 (08:36→20:13)
[2020-11-13] MEDS: VITAMIN B COMP/VIT C/FOLIC ACID CAPSULE PO SCH ×2 (08:36→16:04)
[2020-11-13 12:12] VITALS: BP 95/55
[2020-11-13 14:44] LABS: COVID AG,FIA SOURCE NASAL SWAB
[2020-11-13 16:51] VITALS: BP 90/69
[2020-11-14 04:03] VITALS: BP 104/61
[2020-11-14] MEDS: FERROUS SULFATE 325 MG EC TABLET PO SCH ×3 (07:04→16:40)
[2020-11-14] MEDS: DIVALPROEX SODIUM 250 MG DR TABLET PO SCH ×2 (08:35→16:40)
[2020-11-14] MEDS: VITAMIN B COMP/VIT C/FOLIC ACID CAPSULE PO SCH ×2 (08:35→16:40)
[2020-11-14] MEDS: OLANZapine 10 MG TABLET PO SCH ×2 (08:35→20:08)
[2020-11-14] MEDS: ASCORBIC ACID 500 MG TABLET PO SCH ×3 (08:35→16:40)
[2020-11-14] MEDS: HALOPERIDOL 5 MG TABLET PO PRN (16:40)
[2020-11-14 17:35] VITALS: BP 99/67
[2020-11-14] MEDS: LORazepam 2 MG TABLET PO PRN (20:08)
[2020-11-15 05:39] VITALS: BP 99/69
[2020-11-15] MEDS: FERROUS SULFATE 325 MG EC TABLET PO SCH ×3 (06:43→16:05)
[2020-11-15 07:26] LABS: BASOPHILS % (AUTO) 0.8 % (0.0-2.0); EOSINOPHILS % (AUTO) 5.5 % (1.0-6.0); HEMATOCRIT 33.9 % (36-46); HEMOGLOBIN 10.6 g/dL (12.0-16.0); LYMPHOCYTES # (AUTO) 1.9 K/uL (1.0-4.8); LYMPHOCYTES % (AUTO) 34.6 % (22.0-44.0); MEAN CORPUSCULAR HEMOGLOBIN 23.6 pg (26.0-34.0); MEAN CORPUSCULAR HGB CONC 31.3 G/dL (31.0-37.0); MEAN CORPUSCULAR VOLUME 76 fL (80-100); MONOCYTES # (AUTO) 0.7 K/uL (0.1-1.0); MONOCYTES % (AUTO) 13.2 % (2.0-9.0); NEUTROPHILS # (AUTO) 2.5 K/uL (1.8-7.7); NEUTROPHILS % (AUTO) 45.9 % (40.0-70.0); PLATELET COUNT (AUTO) 228 K/uL (150-450); RED CELL DISTRIBUTION WIDTH 34.5 % (11.5-14.5)
[2020-11-15 08:28] VITALS: BP 128/92
[2020-11-15] MEDS: ASCORBIC ACID 500 MG TABLET PO SCH ×3 (08:43→16:05)
[2020-11-15] MEDS: OLANZapine 10 MG TABLET PO SCH ×2 (08:44→20:25)
[2020-11-15] MEDS: VITAMIN B COMP/VIT C/FOLIC ACID CAPSULE PO SCH ×2 (08:44→16:43)
[2020-11-15] MEDS: DIVALPROEX SODIUM 250 MG DR TABLET PO SCH ×2 (08:44→16:05)
[2020-11-15] MEDS: HALOPERIDOL 5 MG TABLET PO PRN (16:05)
[2020-11-15 16:09] VITALS: BP 95/69
[2020-11-15] MEDS: LORazepam 2 MG TABLET PO PRN (19:37)
[2020-11-16] MEDS: FERROUS SULFATE 325 MG EC TABLET PO SCH ×3 (07:04→16:17)
[2020-11-16] MEDS: VITAMIN B COMP/VIT C/FOLIC ACID CAPSULE PO SCH ×2 (08:43→16:17)
[2020-11-16] MEDS: ASCORBIC ACID 500 MG TABLET PO SCH ×3 (08:43→16:17)
[2020-11-16] MEDS: DIVALPROEX SODIUM 250 MG DR TABLET PO SCH ×2 (08:43→16:17)
[2020-11-16] MEDS: OLANZapine 10 MG TABLET PO SCH ×2 (08:50→20:06)
[2020-11-16 08:54] VITALS: BP 98/53
[2020-11-16 16:22] VITALS: BP 96/60
[2020-11-17] MEDS: FERROUS SULFATE 325 MG EC TABLET PO SCH ×3 (06:35→16:30)
[2020-11-17] MEDS: ASCORBIC ACID 500 MG TABLET PO SCH ×3 (08:31→16:06)
[2020-11-17] MEDS: OLANZapine 10 MG TABLET PO SCH ×2 (08:31→20:02)
[2020-11-17] MEDS: DIVALPROEX SODIUM 250 MG DR TABLET PO SCH ×2 (08:32→16:06)
[2020-11-17] MEDS: VITAMIN B COMP/VIT C/FOLIC ACID CAPSULE PO SCH ×2 (08:32→16:06)
[2020-11-17 08:45] VITALS: BP 102/65
[2020-11-17 16:34] VITALS: BP 107/63
[2020-11-18] MEDS: FERROUS SULFATE 325 MG EC TABLET PO SCH ×3 (07:05→16:01)
[2020-11-18 08:02] VITALS: BP 106/58
[2020-11-18] MEDS: OLANZapine 10 MG TABLET PO SCH ×2 (08:12→20:14)
[2020-11-18] MEDS: VITAMIN B COMP/VIT C/FOLIC ACID CAPSULE PO SCH ×2 (08:13→16:01)
[2020-11-18] MEDS: ASCORBIC ACID 500 MG TABLET PO SCH ×3 (08:13→16:01)
[2020-11-18] MEDS: DIVALPROEX SODIUM 250 MG DR TABLET PO SCH ×2 (08:13→16:01)
[2020-11-18 16:01] VITALS: BP 112/62
[2020-11-19 01:30] VITALS: BP 123/73
[2020-11-19] MEDS: FERROUS SULFATE 325 MG EC TABLET PO SCH ×3 (07:01→17:19)
[2020-11-19 08:18] VITALS: BP 100/66
[2020-11-19] MEDS: DIVALPROEX SODIUM 250 MG DR TABLET PO SCH ×2 (08:55→16:02)
[2020-11-19] MEDS: VITAMIN B COMP/VIT C/FOLIC ACID CAPSULE PO SCH ×2 (08:56→16:02)
[2020-11-19] MEDS: OLANZapine 10 MG TABLET PO SCH ×2 (08:56→20:06)
[2020-11-19] MEDS: ASCORBIC ACID 500 MG TABLET PO SCH ×3 (08:57→16:02)
[2020-11-19 16:00] VITALS: BP 117/60
[2020-11-20] MEDS: FERROUS SULFATE 325 MG EC TABLET PO SCH ×3 (06:52→16:59)
[2020-11-20] MEDS: DIVALPROEX SODIUM 250 MG DR TABLET PO SCH ×2 (08:34→16:59)
[2020-11-20] MEDS: VITAMIN B COMP/VIT C/FOLIC ACID CAPSULE PO SCH ×2 (08:34→16:59)
[2020-11-20] MEDS: ASCORBIC ACID 500 MG TABLET PO SCH ×3 (08:34→16:59)
[2020-11-20] MEDS: OLANZapine 10 MG TABLET PO SCH ×2 (08:34→21:34)
[2020-11-20 08:37] VITALS: BP 114/66
[2020-11-20 10:22] LABS: COVID AG,FIA SOURCE NASAL SWAB
[2020-11-20] MEDS: HALOPERIDOL 5 MG TABLET PO PRN (16:59)
[2020-11-20 17:00] VITALS: BP 121/72
[2020-11-20] MEDS: ZOLPIDEM TARTRATE 10 MG TABLET PO PRN (21:34)
[2020-11-21] MEDS: FERROUS SULFATE 325 MG EC TABLET PO SCH ×3 (06:47→17:36)
[2020-11-21 08:46] VITALS: BP 117/74
[2020-11-21] MEDS: VITAMIN B COMP/VIT C/FOLIC ACID CAPSULE PO SCH ×2 (09:20→16:29)
[2020-11-21] MEDS: ASCORBIC ACID 500 MG TABLET PO SCH ×3 (09:20→16:29)
[2020-11-21] MEDS: OLANZapine 10 MG TABLET PO SCH ×2 (09:20→20:28)
[2020-11-21] MEDS: DIVALPROEX SODIUM 250 MG DR TABLET PO SCH ×2 (09:20→16:29)
[2020-11-21 16:27] VITALS: BP 122/92
[2020-11-22] MEDS: FERROUS SULFATE 325 MG EC TABLET PO SCH ×3 (06:33→16:28)
[2020-11-22 08:56] VITALS: BP 110/63
[2020-11-22] MEDS: ASCORBIC ACID 500 MG TABLET PO SCH ×3 (09:23→16:03)
[2020-11-22] MEDS: DIVALPROEX SODIUM 250 MG DR TABLET PO SCH ×2 (09:23→16:03)
[2020-11-22] MEDS: OLANZapine 10 MG TABLET PO SCH ×2 (09:23→20:25)
[2020-11-22] MEDS: VITAMIN B COMP/VIT C/FOLIC ACID CAPSULE PO SCH ×2 (09:24→16:03)
[2020-11-22 16:00] VITALS: BP 110/69
[2020-11-23 04:01] VITALS: BP 140/62
[2020-11-23] MEDS: FERROUS SULFATE 325 MG EC TABLET PO SCH ×3 (06:43→16:30)
[2020-11-23 08:15] VITALS: BP 134/80
[2020-11-23] MEDS: DIVALPROEX SODIUM 250 MG DR TABLET PO SCH ×2 (09:29→16:30)
[2020-11-23] MEDS: OLANZapine 10 MG TABLET PO SCH ×2 (09:29→20:25)
[2020-11-23] MEDS: ASCORBIC ACID 500 MG TABLET PO SCH ×3 (09:29→16:30)
[2020-11-23] MEDS: VITAMIN B COMP/VIT C/FOLIC ACID CAPSULE PO SCH ×2 (09:29→17:53)
[2020-11-23 16:33] VITALS: BP 95/62
[2020-11-24] MEDS: FERROUS SULFATE 325 MG EC TABLET PO SCH ×3 (06:39→17:32)
[2020-11-24 08:00] VITALS: BP 114/74
[2020-11-24] MEDS: DIVALPROEX SODIUM 250 MG DR TABLET PO SCH ×2 (09:13→17:33)
[2020-11-24] MEDS: OLANZapine 10 MG TABLET PO SCH ×2 (09:13→21:14)
[2020-11-24] MEDS: VITAMIN B COMP/VIT C/FOLIC ACID CAPSULE PO SCH ×2 (09:14→17:32)
[2020-11-24] MEDS: ASCORBIC ACID 500 MG TABLET PO SCH ×3 (09:14→17:32)
[2020-11-24 16:00] VITALS: BP 99/60
[2020-11-24] MEDS: HALOPERIDOL 5 MG TABLET PO PRN (17:33)
[2020-11-24] MEDS: ZOLPIDEM TARTRATE 10 MG TABLET PO PRN (21:14)
[2020-11-25] MEDS: FERROUS SULFATE 325 MG EC TABLET PO SCH ×3 (06:49→17:13)
[2020-11-25 08:30] VITALS: BP 97/66
[2020-11-25] MEDS: VITAMIN B COMP/VIT C/FOLIC ACID CAPSULE PO SCH ×2 (09:07→18:03)
[2020-11-25] MEDS: ASCORBIC ACID 500 MG TABLET PO SCH ×3 (09:08→17:13)
[2020-11-25] MEDS: DIVALPROEX SODIUM 250 MG DR TABLET PO SCH ×2 (09:08→17:14)
[2020-11-25] MEDS: OLANZapine 10 MG TABLET PO SCH ×2 (09:08→21:09)
[2020-11-25 16:45] VITALS: BP 98/67
[2020-11-25] MEDS: HALOPERIDOL 5 MG TABLET PO PRN (17:14)
[2020-11-25] MEDS: ZOLPIDEM TARTRATE 10 MG TABLET PO PRN (21:09)
[2020-11-26 00:28] VITALS: BP 129/85
[2020-11-26] MEDS: FERROUS SULFATE 325 MG EC TABLET PO SCH ×3 (06:30→16:24)
[2020-11-26 09:00] VITALS: BP 96/60
[2020-11-26] MEDS: OLANZapine 10 MG TABLET PO SCH ×2 (09:42→20:16)
[2020-11-26] MEDS: DIVALPROEX SODIUM 250 MG DR TABLET PO SCH ×2 (09:42→16:25)
[2020-11-26] MEDS: VITAMIN B COMP/VIT C/FOLIC ACID CAPSULE PO SCH ×2 (09:42→16:25)
[2020-11-26] MEDS: ASCORBIC ACID 500 MG TABLET PO SCH ×3 (09:43→16:25)
[2020-11-26 16:00] VITALS: BP 125/81
[2020-11-26 20:35] VITALS: BP 125/62
[2020-11-27] MEDS: FERROUS SULFATE 325 MG EC TABLET PO SCH ×3 (06:55→16:07)
[2020-11-27 08:50] VITALS: BP 121/76
[2020-11-27] MEDS: OLANZapine 10 MG TABLET PO SCH ×2 (09:44→20:12)
[2020-11-27] MEDS: VITAMIN B COMP/VIT C/FOLIC ACID CAPSULE PO SCH ×2 (09:44→16:07)
[2020-11-27] MEDS: ASCORBIC ACID 500 MG TABLET PO SCH ×3 (09:45→16:07)
[2020-11-27] MEDS: DIVALPROEX SODIUM 250 MG DR TABLET PO SCH ×2 (09:45→16:07)
[2020-11-27 15:25] LABS: COVID AG,FIA SOURCE NASAL SWAB
[2020-11-27 16:20] VITALS: BP 122/73
[2020-11-28] MEDS: FERROUS SULFATE 325 MG EC TABLET PO SCH ×3 (07:02→16:12)
[2020-11-28 08:00] VITALS: BP 97/66
[2020-11-28] MEDS: VITAMIN B COMP/VIT C/FOLIC ACID CAPSULE PO SCH ×2 (10:02→16:13)
[2020-11-28] MEDS: ASCORBIC ACID 500 MG TABLET PO SCH ×3 (10:02→16:13)
[2020-11-28] MEDS: DIVALPROEX SODIUM 250 MG DR TABLET PO SCH ×2 (10:02→16:12)
[2020-11-28] MEDS: OLANZapine 10 MG TABLET PO SCH ×2 (10:02→20:08)
[2020-11-28 16:06] VITALS: BP 117/76
[2020-11-29] MEDS: FERROUS SULFATE 325 MG EC TABLET PO SCH ×3 (06:50→16:08)
[2020-11-29] MEDS: DIVALPROEX SODIUM 250 MG DR TABLET PO SCH ×2 (08:01→16:08)
[2020-11-29] MEDS: ASCORBIC ACID 500 MG TABLET PO SCH ×3 (08:01→16:08)
[2020-11-29] MEDS: VITAMIN B COMP/VIT C/FOLIC ACID CAPSULE PO SCH ×2 (08:01→16:08)
[2020-11-29] MEDS: OLANZapine 10 MG TABLET PO SCH ×2 (08:02→20:15)
[2020-11-29 09:00] VITALS: BP 100/58
[2020-11-29 16:40] VITALS: BP 109/68
[2020-11-30] MEDS: FERROUS SULFATE 325 MG EC TABLET PO SCH ×3 (06:49→16:15)
[2020-11-30 08:24] VITALS: BP 107/52
[2020-11-30] MEDS: DIVALPROEX SODIUM 250 MG DR TABLET PO SCH ×2 (09:48→16:15)
[2020-11-30] MEDS: OLANZapine 10 MG TABLET PO SCH ×2 (09:48→20:21)
[2020-11-30] MEDS: VITAMIN B COMP/VIT C/FOLIC ACID CAPSULE PO SCH ×2 (09:48→16:16)
[2020-11-30] MEDS: ASCORBIC ACID 500 MG TABLET PO SCH ×3 (09:48→16:16)
[2020-11-30 16:22] VITALS: BP 114/65
[2020-12-01 02:06] VITALS: BP 110/66
[2020-12-01] MEDS: FERROUS SULFATE 325 MG EC TABLET PO SCH ×3 (06:30→16:38)
[2020-12-01] MEDS: OLANZapine 10 MG TABLET PO SCH ×2 (09:49→20:37)
[2020-12-01] MEDS: ASCORBIC ACID 500 MG TABLET PO SCH ×3 (09:50→16:38)
[2020-12-01] MEDS: VITAMIN B COMP/VIT C/FOLIC ACID CAPSULE PO SCH ×2 (09:50→16:38)
[2020-12-01] MEDS: DIVALPROEX SODIUM 250 MG DR TABLET PO SCH ×2 (09:52→16:38)
[2020-12-01 10:49] VITALS: BP 131/94
[2020-12-01 16:00] VITALS: BP 108/64
[2020-12-02] MEDS: FERROUS SULFATE 325 MG EC TABLET PO SCH ×3 (06:49→16:17)
[2020-12-02 08:10] VITALS: BP 133/68
[2020-12-02] MEDS: VITAMIN B COMP/VIT C/FOLIC ACID CAPSULE PO SCH ×2 (09:45→16:17)
[2020-12-02] MEDS: DIVALPROEX SODIUM 250 MG DR TABLET PO SCH ×2 (09:45→16:17)
[2020-12-02] MEDS: OLANZapine 10 MG TABLET PO SCH ×2 (09:45→20:21)
[2020-12-02] MEDS: ASCORBIC ACID 500 MG TABLET PO SCH ×3 (09:45→16:17)
[2020-12-02 16:19] VITALS: BP 111/62
[2020-12-03 04:27] VITALS: BP 105/72
[2020-12-03] MEDS: FERROUS SULFATE 325 MG EC TABLET PO SCH ×3 (06:52→16:11)
[2020-12-03] MEDS: VITAMIN B COMP/VIT C/FOLIC ACID CAPSULE PO SCH ×2 (08:23→16:11)
[2020-12-03] MEDS: OLANZapine 10 MG TABLET PO SCH ×2 (08:23→20:14)
[2020-12-03] MEDS: ASCORBIC ACID 500 MG TABLET PO SCH ×3 (08:24→16:11)
[2020-12-03] MEDS: DIVALPROEX SODIUM 250 MG DR TABLET PO SCH ×2 (08:24→16:11)
[2020-12-03 10:40] VITALS: BP 128/87
[2020-12-03 16:13] VITALS: BP 120/80
[2020-12-04] MEDS: FERROUS SULFATE 325 MG EC TABLET PO SCH ×3 (06:39→16:06)
[2020-12-04 08:20] VITALS: BP 106/53
[2020-12-04] MEDS: ASCORBIC ACID 500 MG TABLET PO SCH ×3 (08:44→16:06)
[2020-12-04] MEDS: DIVALPROEX SODIUM 250 MG DR TABLET PO SCH ×2 (08:44→16:06)
[2020-12-04] MEDS: OLANZapine 10 MG TABLET PO SCH ×2 (08:44→20:05)
[2020-12-04] MEDS: VITAMIN B COMP/VIT C/FOLIC ACID CAPSULE PO SCH ×2 (08:45→16:06)
[2020-12-04 14:54] LABS: COVID AG,FIA SOURCE NASOPHARYNGEAL
[2020-12-04 16:18] VITALS: BP 102/63
[2020-12-05] MEDS: FERROUS SULFATE 325 MG EC TABLET PO SCH ×3 (06:32→17:30)
[2020-12-05] MEDS: OLANZapine 10 MG TABLET PO SCH ×2 (09:23→21:00)
[2020-12-05] MEDS: VITAMIN B COMP/VIT C/FOLIC ACID CAPSULE PO SCH ×2 (09:24→17:30)
[2020-12-05] MEDS: ASCORBIC ACID 500 MG TABLET PO SCH ×3 (09:24→17:30)
[2020-12-05] MEDS: DIVALPROEX SODIUM 250 MG DR TABLET PO SCH ×2 (09:24→17:30)
[2020-12-05 16:00] VITALS: BP 110/64
[2020-12-05] MEDS: HALOPERIDOL 5 MG TABLET PO PRN (17:30)
[2020-12-05] MEDS: LORazepam 2 MG TABLET PO PRN (21:00)
[2020-12-06 02:55] VITALS: BP 101/60
[2020-12-06] MEDS: FERROUS SULFATE 325 MG EC TABLET PO SCH ×3 (06:34→16:33)
[2020-12-06 08:41] VITALS: BP 102/60
[2020-12-06] MEDS: DIVALPROEX SODIUM 250 MG DR TABLET PO SCH ×2 (09:26→16:04)
[2020-12-06] MEDS: OLANZapine 10 MG TABLET PO SCH ×2 (09:27→20:11)
[2020-12-06] MEDS: ASCORBIC ACID 500 MG TABLET PO SCH ×3 (09:27→16:04)
[2020-12-06] MEDS: VITAMIN B COMP/VIT C/FOLIC ACID CAPSULE PO SCH ×2 (09:27→16:04)
[2020-12-06] MEDS ORDERED: COVID-19 VACCINE,AD26(JANSSEN)(J&J)/PF 0.5 ML VIAL IM. ONE (15:45)
[2020-12-06 16:00] VITALS: BP 125/78
[2020-12-07] MEDS: FERROUS SULFATE 325 MG EC TABLET PO SCH ×3 (06:37→16:03)
[2020-12-07 08:30] VITALS: BP 112/77
[2020-12-07] MEDS: OLANZapine 10 MG TABLET PO SCH ×2 (08:46→20:08)
[2020-12-07] MEDS: VITAMIN B COMP/VIT C/FOLIC ACID CAPSULE PO SCH ×2 (08:46→16:03)
[2020-12-07] MEDS: DIVALPROEX SODIUM 250 MG DR TABLET PO SCH ×2 (08:46→16:03)
[2020-12-07] MEDS: ASCORBIC ACID 500 MG TABLET PO SCH ×3 (10:13→16:03)
[2020-12-07 17:52] VITALS: BP 125/73
[2020-12-08 01:26] VITALS: BP 98/62
[2020-12-08] MEDS: FERROUS SULFATE 325 MG EC TABLET PO SCH ×3 (07:00→17:33)
[2020-12-08 08:36] VITALS: BP 108/54
[2020-12-08] MEDS: OLANZapine 10 MG TABLET PO SCH ×2 (09:22→20:44)
[2020-12-08] MEDS: VITAMIN B COMP/VIT C/FOLIC ACID CAPSULE PO SCH ×2 (09:22→17:32)
[2020-12-08] MEDS: DIVALPROEX SODIUM 250 MG DR TABLET PO SCH ×2 (09:22→17:33)
[2020-12-08] MEDS: ASCORBIC ACID 500 MG TABLET PO SCH ×3 (09:22→17:32)
[2020-12-08 16:09] VITALS: BP 126/73
[2020-12-08] MEDS: HALOPERIDOL 5 MG TABLET PO PRN (17:33)
[2020-12-08] MEDS: LORazepam 2 MG TABLET PO PRN (20:45)
[2020-12-09 02:09] VITALS: BP 108/65
[2020-12-09] MEDS: FERROUS SULFATE 325 MG EC TABLET PO SCH ×3 (06:38→17:03)
[2020-12-09 08:30] VITALS: BP 104/50
[2020-12-09] MEDS: DIVALPROEX SODIUM 250 MG DR TABLET PO SCH ×2 (08:50→17:03)
[2020-12-09] MEDS: OLANZapine 10 MG TABLET PO SCH ×2 (08:50→21:31)
[2020-12-09] MEDS: ASCORBIC ACID 500 MG TABLET PO SCH ×3 (08:50→17:03)
[2020-12-09] MEDS: VITAMIN B COMP/VIT C/FOLIC ACID CAPSULE PO SCH ×2 (08:50→17:03)
[2020-12-09 16:09] VITALS: BP 102/63
[2020-12-09] MEDS: ZOLPIDEM TARTRATE 10 MG TABLET PO PRN (21:20)
[2020-12-10] MEDS: FERROUS SULFATE 325 MG EC TABLET PO SCH ×3 (06:33→17:36)
[2020-12-10 08:30] VITALS: BP 128/62
[2020-12-10] MEDS: OLANZapine 10 MG TABLET PO SCH ×2 (08:46→21:05)
[2020-12-10] MEDS: ASCORBIC ACID 500 MG TABLET PO SCH ×3 (08:46→17:35)
[2020-12-10] MEDS: VITAMIN B COMP/VIT C/FOLIC ACID CAPSULE PO SCH ×2 (08:46→17:36)
[2020-12-10] MEDS: DIVALPROEX SODIUM 250 MG DR TABLET PO SCH ×2 (08:47→17:35)
[2020-12-10] MEDS ORDERED: PNEUMOCOCCAL VACCINE POLYVALENT 0.5 ML VIAL [PPSV23] IM. ONE (16:15)
[2020-12-10 19:06] VITALS: BP 120/80
[2020-12-10] MEDS: LORazepam 2 MG TABLET PO PRN (21:05)
[2020-12-11 02:43] VITALS: BP 125/77
[2020-12-11] MEDS: FERROUS SULFATE 325 MG EC TABLET PO SCH ×3 (06:43→17:24)
[2020-12-11 08:00] VITALS: BP 148/75
[2020-12-11] MEDS: DIVALPROEX SODIUM 250 MG DR TABLET PO SCH ×2 (08:28→17:24)
[2020-12-11] MEDS: OLANZapine 10 MG TABLET PO SCH ×2 (08:28→20:31)
[2020-12-11] MEDS: ASCORBIC ACID 500 MG TABLET PO SCH ×3 (08:28→17:24)
[2020-12-11] MEDS: VITAMIN B COMP/VIT C/FOLIC ACID CAPSULE PO SCH ×2 (08:28→17:24)
[2020-12-11 17:06] VITALS: BP 130/80
[2020-12-11] MEDS: HALOPERIDOL 5 MG TABLET PO PRN (17:24)
[2020-12-11] MEDS: LORazepam 2 MG TABLET PO PRN (20:32)
[2020-12-12] MEDS: FERROUS SULFATE 325 MG EC TABLET PO SCH ×3 (06:20→17:34)
[2020-12-12 08:55] VITALS: BP 119/76
[2020-12-12] MEDS: OLANZapine 10 MG TABLET PO SCH ×2 (09:32→21:33)
[2020-12-12] MEDS: ASCORBIC ACID 500 MG TABLET PO SCH ×3 (09:32→17:34)
[2020-12-12] MEDS: DIVALPROEX SODIUM 250 MG DR TABLET PO SCH ×2 (09:32→17:34)
[2020-12-12] MEDS: VITAMIN B COMP/VIT C/FOLIC ACID CAPSULE PO SCH ×2 (09:32→17:34)
[2020-12-12 14:25] LABS: COVID AG,FIA SOURCE NASAL SWAB
[2020-12-12 16:00] VITALS: BP 100/62
[2020-12-12] MEDS: HALOPERIDOL 5 MG TABLET PO PRN (17:34)
[2020-12-12] MEDS: LORazepam 2 MG TABLET PO PRN (19:50)
[2020-12-13] MEDS: FERROUS SULFATE 325 MG EC TABLET PO SCH ×3 (06:31→16:19)
[2020-12-13] MEDS: VITAMIN B COMP/VIT C/FOLIC ACID CAPSULE PO SCH ×2 (08:54→16:18)
[2020-12-13] MEDS: OLANZapine 10 MG TABLET PO SCH ×2 (08:54→20:12)
[2020-12-13] MEDS: DIVALPROEX SODIUM 250 MG DR TABLET PO SCH ×2 (08:54→16:19)
[2020-12-13] MEDS: ASCORBIC ACID 500 MG TABLET PO SCH ×3 (08:55→16:19)
[2020-12-13 09:33] VITALS: BP 118/74
[2020-12-13 16:52] VITALS: BP 106/66
[2020-12-14 02:35] VITALS: BP 104/68
[2020-12-14] MEDS: FERROUS SULFATE 325 MG EC TABLET PO SCH ×3 (06:24→16:06)
[2020-12-14 08:37] VITALS: BP 126/84
[2020-12-14] MEDS: VITAMIN B COMP/VIT C/FOLIC ACID CAPSULE PO SCH ×2 (09:31→16:06)
[2020-12-14] MEDS: ASCORBIC ACID 500 MG TABLET PO SCH ×3 (09:32→16:06)
[2020-12-14] MEDS: DIVALPROEX SODIUM 250 MG DR TABLET PO SCH ×2 (09:32→16:06)
[2020-12-14] MEDS: OLANZapine 10 MG TABLET PO SCH ×2 (09:32→20:08)
[2020-12-14 17:45] VITALS: BP 117/71
[2020-12-15 02:59] VITALS: BP 125/69
[2020-12-15] MEDS: FERROUS SULFATE 325 MG EC TABLET PO SCH ×3 (06:57→16:10)
[2020-12-15 08:00] VITALS: BP 124/72
[2020-12-15] MEDS: DIVALPROEX SODIUM 250 MG DR TABLET PO SCH ×2 (09:57→16:10)
[2020-12-15] MEDS: VITAMIN B COMP/VIT C/FOLIC ACID CAPSULE PO SCH ×2 (09:58→16:10)
[2020-12-15] MEDS: ASCORBIC ACID 500 MG TABLET PO SCH ×3 (09:58→16:10)
[2020-12-15] MEDS: OLANZapine 10 MG TABLET PO SCH ×2 (09:58→20:05)
[2020-12-15 16:00] VITALS: BP 126/78
[2020-12-16] MEDS: FERROUS SULFATE 325 MG EC TABLET PO SCH ×3 (06:40→16:18)
[2020-12-16 08:24] VITALS: BP 138/84
[2020-12-16] MEDS: DIVALPROEX SODIUM 250 MG DR TABLET PO SCH ×2 (09:21→16:18)
[2020-12-16] MEDS: ASCORBIC ACID 500 MG TABLET PO SCH ×3 (09:22→16:18)
[2020-12-16] MEDS: VITAMIN B COMP/VIT C/FOLIC ACID CAPSULE PO SCH ×2 (09:22→16:18)
[2020-12-16] MEDS: OLANZapine 10 MG TABLET PO SCH ×2 (09:22→20:18)
[2020-12-16 16:00] VITALS: BP 140/88
[2020-12-17] MEDS: FERROUS SULFATE 325 MG EC TABLET PO SCH ×3 (06:42→16:30)
[2020-12-17] MEDS: VITAMIN B COMP/VIT C/FOLIC ACID CAPSULE PO SCH ×2 (09:48→16:06)
[2020-12-17] MEDS: OLANZapine 10 MG TABLET PO SCH ×2 (09:48→20:03)
[2020-12-17] MEDS: DIVALPROEX SODIUM 250 MG DR TABLET PO SCH ×2 (09:48→16:06)
[2020-12-17] MEDS: ASCORBIC ACID 500 MG TABLET PO SCH ×3 (09:48→16:06)
[2020-12-17 11:31] VITALS: BP 132/80
[2020-12-17 16:38] VITALS: BP 130/80
[2020-12-18] MEDS: FERROUS SULFATE 325 MG EC TABLET PO SCH ×3 (06:46→17:21)
[2020-12-18] MEDS: ASCORBIC ACID 500 MG TABLET PO SCH ×3 (08:18→17:20)
[2020-12-18] MEDS: OLANZapine 10 MG TABLET PO SCH ×2 (08:18→21:02)
[2020-12-18] MEDS: DIVALPROEX SODIUM 250 MG DR TABLET PO SCH ×2 (08:18→17:21)
[2020-12-18] MEDS: VITAMIN B COMP/VIT C/FOLIC ACID CAPSULE PO SCH ×2 (08:18→17:51)
[2020-12-18 11:51] VITALS: BP 134/84
[2020-12-18 16:00] VITALS: BP 115/63
[2020-12-18] MEDS: HALOPERIDOL 5 MG TABLET PO PRN (17:21)
[2020-12-18] MEDS: LORazepam 2 MG TABLET PO PRN (21:02)
[2020-12-19 02:02] VITALS: BP 110/68
[2020-12-19 07:07] LABS: COVID AG,FIA SOURCE NASOPHARYNGEAL
[2020-12-19] MEDS: OLANZapine 10 MG TABLET PO SCH ×2 (08:57→20:26)
[2020-12-19] MEDS: DIVALPROEX SODIUM 250 MG DR TABLET PO SCH ×2 (08:57→16:56)
[2020-12-19] MEDS: ASCORBIC ACID 500 MG TABLET PO SCH ×4 (08:58→17:00)
[2020-12-19] MEDS: VITAMIN B COMP/VIT C/FOLIC ACID CAPSULE PO SCH ×2 (08:58→16:57)
[2020-12-19 09:00] VITALS: BP 118/71
[2020-12-19 10:40] VITALS: BP 118/71
[2020-12-19] MEDS: FERROUS SULFATE 325 MG EC TABLET PO SCH ×3 (11:58→16:57)
[2020-12-19 16:30] VITALS: BP 130/75
[2020-12-19] MEDS: HALOPERIDOL 5 MG TABLET PO PRN (20:26)
[2020-12-20] MEDS: FERROUS SULFATE 325 MG EC TABLET PO SCH (06:32)
[2020-12-20] MEDS ORDERED: ASCO500 PO (08:43)
[2020-12-20] MEDS ORDERED: DIVA-111 PO (08:43)
[2020-12-20] MEDS ORDERED: FERR-89 PO (08:43)
[2020-12-20] MEDS ORDERED: B CO1CAP6 PO (08:52)
[2020-12-20 09:24] VITALS: BP 123/76
[2020-12-20] MEDS: DIVALPROEX SODIUM 250 MG DR TABLET PO SCH (09:24)
[2020-12-20] MEDS: VITAMIN B COMP/VIT C/FOLIC ACID CAPSULE PO SCH (09:25)
[2020-12-20] MEDS: OLANZapine 10 MG TABLET PO SCH (09:25)
== END 2020-12-20 10:05 | DRG 750 ==
LOC: 3EI 18:15 → 3EX 11-14 11:00 → 3EI 11-20 14:30
PROVIDERS: ADMIT Psychiatry & Neurology Child & Adolescent Psychiatry; ATTEND Psychiatry & Neurology Child & Adolescent Psychiatry
PROC: XW023U6 Introduction of COVID-19 Vaccine into Muscle, Percutaneous Approach, New Technology Group 6 (ICD-10-PCS; 2020-12-06)
PROC: 3E0234Z Introduction of Serum, Toxoid and Vaccine into Muscle, Percutaneous Approach (ICD-10-PCS; principal; 2020-12-10)
DX: F20.0 Paranoid schizophrenia (principal); E44.0 Moderate protein-calorie malnutrition; S82.001A Unspecified fracture of right patella, initial encounter for closed fracture; K21.9 Gastro-esophageal reflux disease without esophagitis; D50.9 Iron deficiency anemia, unspecified; Z20.822 Contact with and (suspected) exposure to COVID-19; Y93.89 Activity, other specified; Z91.5 Personal history of self-harm; Z59.0 Homelessness; Z79.899 Other long term (current) drug therapy; Y99.8 Other external cause status; Z68.29 Body mass index [BMI] 29.0-29.9, adult; Z23 Encounter for immunization; W01.0XXA Fall on same level from slipping, tripping and stumbling without subsequent striking against object, initial encounter; Y92.238 Other place in hospital as the place of occurrence of the external cause
CPT/HCPCS: 0031A; 80053; 80061; 80164; 84439; 84443; 85025; 90732; 91303; G0378; J1200; J1630; J2060